=== PATIENT | male | born 1940 | race Caucasian/White ===

== ENCOUNTER 2017-04-24 08:09 | Day surgery (SDC) | payer MEDICARE, BC ==
[2017-04-18 14:54] VITALS: BMI 26.3
[2017-04-24] MEDS ORDERED: ASPIRIN 325 MG TAB PO STA (08:20)
[2017-04-24] MEDS ORDERED: ALPRAZolam 0.25 MG TAB PO PRN (08:20)
[2017-04-24] MEDS ORDERED: ATORVASTATIN 80 MG TAB PO STA (08:20)
[2017-04-24] MEDS ORDERED: ALPRAZolam 0.5 MG TAB PO PRN (08:20)
[2017-04-24] MEDS ORDERED: NITROGLYCERIN SL TABS 0.4 MG TAB SUBLINGUAL PRN ×2 (08:20→11:54)
[2017-04-24] MEDS ORDERED: SODIUM CHLORIDE 0.9% 1,000 ML in EMPTY BAG 1 BAG IV ONE (08:20)
[2017-04-24] MEDS ORDERED: LIDOCAINE 2% INJ 20 MG/ML (20 ML MDV) ONE (09:43)
[2017-04-24] MEDS ORDERED: MIDAZOLAM 2 MG/2 ML VIAL ONE (09:43)
[2017-04-24] MEDS ORDERED: diphenhydrAMINE 50 MG/ML 1 ML VIAL ONE (09:43)
[2017-04-24] MEDS ORDERED: IV FLUID CONTINUATION 1,000 ML IV ONE (09:51)
[2017-04-24] MEDS: MIDAZOLAM 2 MG/2 ML VIAL IV ONE ×2 (10:18→11:13)
[2017-04-24] MEDS ORDERED: diphenhydrAMINE 50 MG/ML 1 ML VIAL IVP ONE (10:18)
[2017-04-24] MEDS ORDERED: LIDOCAINE 2% INJ 20 MG/ML SQ ONE (10:19)
[2017-04-24] MEDS ORDERED: BIVALIRUDIN BOLUS 250 MG/50 ML IV ONE (11:08)
[2017-04-24] MEDS ORDERED: BIVALIRUDIN 250 MG in SODIUM CHLORIDE 0.9% 50 ML IV ONE (11:09)
[2017-04-24] MEDS: NITROGLYCERIN 1000MCG/10ML SYRINGE INTRACORON ONE ×2 (11:15→11:46)
[2017-04-24] MEDS ORDERED: IOHEXOL 350 MG/ML 125ML BOTTLE INJ ONE (11:48)
[2017-04-24] MEDS ORDERED: CLOPIDOGREL 75 MG TAB ONE (11:49)
[2017-04-24] MEDS ORDERED: ZOLPIDEM 10 MG TAB PO PRN (11:53)
[2017-04-24] MEDS ORDERED: CARISOPRODOL 350 MG TAB PO PRN (11:53)
[2017-04-24] MEDS ORDERED: HYDROcodone/APAP 10-325MG 1 EACH TAB PO PRN (11:53)
[2017-04-24] MEDS ORDERED: ATROPINE SULFATE 0.1 MG/ML 10ML SYRINGE IV PRN (11:54)
[2017-04-24] MEDS ORDERED: ZOLPIDEM 5 MG TAB PO PRN (11:54)
[2017-04-24] MEDS ORDERED: MAG HYDROX/AL HYDROX/SIMETH 30 ML CUP PO PRN (11:54)
[2017-04-24] MEDS ORDERED: RX INFO: IV CONTRAST WAS GIVEN 1 EACH MISC MISCELLANE PRN (11:54)
[2017-04-24] MEDS ORDERED: SODIUM CHLORIDE 0.9% 1,000 ML IV SCH (12:00)
[2017-04-24] MEDS ORDERED: CLOPIDOGREL 75 MG TAB PO ONE (12:00)
--- NOTE | 2017-04-24 12:34 | LTR ---
DATE OF SERVICE: April 24, 2017. RE: Dread De La Rosa Dear Claudio; Mr. Dread De La Rosa was not feeling well lately. I did a stress test on him in the office and that revealed lateral wall ischemia. He underwent a heart catheterization, which showed the occlusion of all bypasses except for the UMANZOR. He underwent successful stenting of the RCA with good angiographic results and he will be scheduled to undergo stenting of the left circumflex in the next few weeks. I want to thank you for allowing me to participate in his care and please do not hesitate to call if you have any question or concern. Sincerely, MD DILCIA Holt / DENNIS: [id number] /
--- NOTE | 2017-04-24 12:37 | CC ---
CARDIAC CATHETERIZATION REPORT DATE OF SERVICE: 04/24/2017 PERFORMING PHYSICIAN: South Riley MD, composition floor layer. PROCEDURE PERFORMED: 1. Selective left and right coronary angiogram. 2. Selective left internal mammary artery angiogram. 3. SVG to left circumflex angiogram. 4. SVG to ramus intermedius angiogram. 5. SVG to diagonal angiogram. 6. SVG to RCA angiogram. 7. Successful stenting of the distal RCA using x 20 mm Promus Premier drug- eluting stent with good angiographic results. 8. Successful stenting of the mid RCA using 3.0 x 12 mm Promus Premier drug-eluting stent with good angiographic results. INDICATION: This is a pleasant 76-year-old gentleman who is known to have CAD and prior coronary artery bypass grafting x5 where he received UMANZOR to LAD, SVG to diagonal, SVG to ramus, SVG to left circumflex, SVG to RCA, and UMANZOR to LAD, was experiencing exertional dyspnea. He underwent a myocardial perfusion imaging stress test and that showed lateral wall ischemia. In view of that, he was scheduled to undergo a heart catheterization. APPROACH: Right common femoral artery. COMPLICATION: None. LEVEL OF SEDATION: Moderate with a sedation length of 90 minutes. PROCEDURE DESCRIPTION: After obtaining an informed consent, the patient was brought to the cardiac laborer gold leaf. The right common femoral artery was cannulated using micropuncture technique, the micropuncture wire passed easily. Then I placed a 6-Nepali sheath in the right common femoral artery. After that, I did selective left and right coronary angiogram using JL4 and JR4 catheters. After that, I did SVG angiogram x4 using the JR4 catheter. The left internal mammary artery angiogram was performed also using the JR4 catheter. After that, I decided to intervene on the RCA please see a separate paragraph for that. SELECTIVE CORONARY ANGIOGRAM: 1. The left main is angiographically normal. It bifurcates into the left circumflex and left anterior descending artery. 2. The left circumflex is a large caliber vessel and it is a nondominant vessel. The proximal left circumflex gives rise into a large first obtuse marginal branch, which works as ramus intermedius, which has lesion in the ostium, appeared to be in the range of 50% and the midportion has another lesion appeared to be in the range of 70%. Distally it appeared to be angiographically normal. The mid left circumflex by the bifurcation of second OM branch has a lesion appeared to be in the range of 80% to 90%. The first obtuse marginal branch itself appeared to have moderate disease only. 3. The left anterior descending artery, the proximal LAD has disease appeared to be in the range of 50%. The mid LAD is 100% occluded. 4. The RCA, the proximal RCA appeared to be angiographically normal. The mid RCA has a lesion appeared to be in the range of 60%. The RCA distally appeared to have a long tubular lesion in the range of 90% involving the PDA and PLV branch of the RCA. The. The PLV branch is quite larger branch. CORONARY BYPASSES ANGIOGRAM: 1. The UMANZOR to LAD is patent. 2. The SVG to diagonal is occluded. 3. The SVG to the ramus intermedius is occluded. 4. The SVG to left circumflex is occluded. 5. The SVG to RCA is occluded. PCI OF THE RCA: Anticoagulation was initiated using Angiomax. Subsequently I took JR4 guide and the RCA was engaged. A whisper wire was used to wire the right coronary artery. Initially, I tried to advance 2.5 x 15 mm balloon but the balloon will not cross the distal RCA lesion. At that point, I decided to use 1.5 mm balloon and then after that I was able to advance the 2.5 x 15 mm balloon where I did PTCA ballooning of that lesion and I was able to open the lesion completely. After that, and using a double wire with whisper and run-through wire, I was able to advance 2.75 x 20 mm Promus Premier drug-eluting stent where the stent was positioned under fluoroscopy guidance and deployed under 14 atmospheres for 20 seconds. The following angiogram showed good angiographic results. After that, for the lesion in the mid RCA, which looks quite worse after the intervention on the distal RCA, I decided to stent that lesion so I was able to advance a 3.0 x 12 mm Promus Premier drug-eluting stent where the stent again was positioned under fluoroscopy guidance and deployed under 14 atmospheres for 20 seconds. The following angiogram showed good angiographic results. The procedure was completed without any complication. CONCLUSION: 1. Severe triple-vessel coronary artery disease. 2. Patent UMANZOR to LAD. 3. The occlusion of all vein grafts including SVG to RCA, SVG to left circumflex, SVG to ramus intermedius, and SVG to diagonal branch. 4. Successful stenting of the distal and mid RCA as described above. Postprocedure management is maximize medical treatment and follow up with the patient. DILCIA / DENNIS: [id number] /
[2017-04-24] MEDS ORDERED: AMITRIPTYLINE HCL 50 MG TAB PO SCH (18:30)
[2017-04-24] MEDS: CARVEDILOL 12.5 MG TAB PO SCH (20:06)
[2017-04-24] MEDS: CHOLECALCIFEROL 1,000 UNIT TAB PO SCH (20:06)
[2017-04-24] MEDS ORDERED: PANTOPRAZOLE 40 MG TABLET PO SCH (21:00)
[2017-04-25 06:35] LABS: Basophils % (A) 1 %; Eosinophils # (A) 0.2 k/uL (0-0.7); Eosinophils % (A) 2 %; HCT 39.3 % (39.0-53.0); HGB 12.8 gm/dL (13.0-17.5); Lymphocytes # (A) 1.3 k/uL (1.0-4.8); Lymphocytes % (A) 17 %; MCH 33.5 pg (25.0-35.0); MCHC 32.6 g/dL (31.0-37.0); MCV 102.5 fL (80.0-100.0); Macrocytosis Slight; Mean Platelet Volume 7.4; Monocytes # (A) 0.6 k/uL (0-1.0); Monocytes % (A) 8 %; Neutrophils % (A) 70 %; Platelet Count 160 k/uL (150-450); RBC 3.83 m/uL (4.30-5.90); RDW 14.6 % (11.5-15.5); WBC 7.2 k/uL (3.8-10.6)
[2017-04-25 06:44] LABS: Anion Gap 9 mmol/L; Blood Urea Nitrogen 17 mg/dL (9-20); Calcium 9.3 mg/dL (8.4-10.2); Carbon Dioxide 28 mmol/L (22-30); Chloride 102 mmol/L (98-107); Glucose 103 mg/dL (74-99); Potassium 4.1 mmol/L (3.5-5.1); Sodium 139 mmol/L (137-145)
[2017-04-25] MEDS: CHOLECALCIFEROL 1,000 UNIT TAB PO SCH (08:21)
[2017-04-25] MEDS: CARVEDILOL 12.5 MG TAB PO SCH (08:21)
[2017-04-25] MEDS ORDERED: CLOPIDOGREL 75 MG TAB PO SCH (09:00)
[2017-04-25] MEDS ORDERED: TAMSULOSIN 0.4 MG CAP.ER.24H PO SCH (09:00)
--- NOTE | 2017-04-25 10:08 | P.PN ---
Subjective Progress Note Date: 04/25/17 Principal diagnosis: RCA stent Discharge note This is a pleasant 76-year-old gentleman with known history of coronary artery disease and prior bypass surgery in 1999, hypertension, hyperlipidemia, he underwent cardiac catheterization with subsequent stent placement of the mid and distal right coronary artery. Patient was seen and examined this morning, denies any chest pain or difficulty in breathing. He has been up ambulating without any difficulty. EKG from this morning was reviewed which was normal sinus rhythm with no changes from post-PCI. Blood pressure 100/60, heart rate in the 70s, 96% on room air. White blood cell count 7.2, hemoglobin 12.8, platelet count 160. Sodium 139, potassium 4.1, BUN 17, creatinine 1.06. Patient will be discharged home today, follow-up appointment with Dr. Rilye in the office in one week. Objective - Vital Signs Vital signs: Vital Signs Temp 97 F L 04/25/17 08:00 Pulse 77 04/25/17 08:00 Resp 16 04/25/17 08:00 BP 100/63 04/25/17 08:00 Pulse Ox 96 04/25/17 08:00 Intake & Output 04/24/17 04/25/17 04/25/17 18:59 06:59 18:59 Intake Total 1308 360 Output Total 1275 650 Balance 33 -650 360 Weight 65.317 kg 63.5 kg Intake: IV 832 Oral 476 360 Output: Urine 1275 650 Other: Voiding Method Urinal Urinal # Voids 0 - Exam PHYSICAL EXAMINATION: HEENT: Head is atraumatic, normocephalic. Pupils equal, round. Neck is supple. There is no elevated jugular venous pressure. HEART EXAMINATION: Heart S1, S2 normal. No murmur or gallop heard. CHEST EXAMINATION: Lungs are clear to auscultation and precussion. No chest wall tenderness is noted on palpation or with deep breathing. ABDOMEN: Soft, nontender. Bowel sounds are heard. No organomegaly noted. Right groin soft, no evidence of any hematoma. EXTREMITIES: 2+ peripheral pulses with no evidence of peripheral edema and no calf tenderness noted. NEUROLOGIC patient is awake, alert and oriented -3. . - Labs CBC & Chem 7: 04/25/17 06:12 04/25/17 06:12 Labs: Abnormal Lab Results - Last 24 Hours (Table) 04/25/17 04/25/17 Range/Units 06:12 06:12 RBC 3.83 L (4.30-5.90) m/uL Hgb 12.8 L (13.0-17.5) gm/dL MCV 102.5 H (80.0-100.0) fL Glucose 103 H (74-99) mg/dL Assessment and Plan Plan: Assessment and plan #1 status post angioplasty and stenting of the mid and distal right coronary artery #2 coronary artery disease with prior bypass surgery in 1999 #3 hypertension #4 hyperlipidemia Plan Patient may be able to be discharged home today on maximal medical treatment. We'll make him a follow-up appointment with Dr. Riley in the office in one week. Patient will be discharged home on aspirin 81 mg daily, Lipitor 80 mg daily, Coreg 25 mg one tablet by mouth twice a day, vitamin D twice a day, Plavix 75 mg daily, Protonix 40 mg daily, Flomax 0.4 mg daily, sublingual nitroglycerin as needed for chest pain. DNP note has been reviewed, I agree with a documented findings and plan of care. Patient was seen and examined.
[2017-04-25] MEDS ORDERED: ATORVASTATIN 20 MG TAB PO SCH (12:30)
[2017-04-25 16:25] VITALS: BP 100/63; PULSE 77; RESP 16; TEMP 97
[2017-04-25] MEDS ORDERED: ASPIRIN 81 MG PO SCH (21:00)
[2017-04-25] MEDS ORDERED: ATORVASTATIN 80 MG TAB PO SCH (21:00)
== END 2017-04-25 12:59 | disposition home or self-care (01) ==
LOC: CATHCVL 08:09 → 6SEL 11:48 → CATHCVL 04-25 12:59
PROVIDERS: ATTEND Internal Medicine Interventional Cardiology
DX: I25.700 Atherosclerosis of coronary artery bypass graft(s), unspecified, with unstable angina pectoris (principal); R94.39 Abnormal result of other cardiovascular function study; I11.9 Hypertensive heart disease without heart failure; I73.9 Peripheral vascular disease, unspecified; E78.00 Pure hypercholesterolemia, unspecified; Z95.1 Presence of aortocoronary bypass graft; Z95.820 Peripheral vascular angioplasty status with implants and grafts; I72.3 Aneurysm of iliac artery; Z79.82 Long term (current) use of aspirin; Z79.899 Other long term (current) drug therapy; Z87.891 Personal history of nicotine dependence
CPT/HCPCS: 94760; 93455; 80048; 85025; C9600; C1769 ×6; C1887 ×2; C1894; C1874; C1725; J2001; J2250; J1200; J0583; Q9967

== ENCOUNTER 2017-05-08 11:15 | Day surgery (SDC) | payer MEDICARE, BC ==
[2017-05-07 09:57] VITALS: BMI 25.4
[~2017-05-08 11:15] MED LIST: ALPRAZolam 0.25 MG TAB PO PRN; ALPRAZolam 0.5 MG TAB PO PRN; ASPIRIN 325 MG TAB PO STA; NITROGLYCERIN SL TABS 0.4 MG TAB SUBLINGUAL PRN; SODIUM CHLORIDE 0.9% 1,000 ML in EMPTY BAG 1 BAG IV ONE
[2017-05-08] MEDS ORDERED: LIDOCAINE 2% INJ 20 MG/ML (20 ML MDV) ONE (14:08)
[2017-05-08] MEDS ORDERED: MIDAZOLAM 2 MG/2 ML VIAL IV ONE (14:16)
[2017-05-08] MEDS ORDERED: MIDAZOLAM 2 MG/2 ML VIAL ONE (14:17)
[2017-05-08] MEDS ORDERED: LIDOCAINE 2% INJ 20 MG/ML SQ ONE (14:21)
[2017-05-08] MEDS ORDERED: BIVALIRUDIN BOLUS 250 MG/50 ML IV ONE (14:24)
[2017-05-08] MEDS ORDERED: BIVALIRUDIN 250 MG in SODIUM CHLORIDE 0.9% 50 ML IV ONE (14:25)
[2017-05-08] MEDS ORDERED: fentaNYL (PF) 50 MCG/ML 2 ML AMP ONE (14:55)
[2017-05-08] MEDS ORDERED: fentaNYL (PF) 50 MCG/ML 2 ML AMP IV ONE (14:57)
[2017-05-08] MEDS ORDERED: NITROGLYCERIN 1000MCG/10ML SYRINGE INTRACORON ONE (15:07)
[2017-05-08] MEDS ORDERED: niCARdipine Syringe (1,000 mcg/10 mL) INTRACORON ONE (15:08)
[2017-05-08] MEDS ORDERED: IOHEXOL 350 MG/ML 125ML BOTTLE INJ ONE (15:09)
[2017-05-08] MEDS ORDERED: HEPARIN SODIUM 1,000 UN/ML (10ML VL) ONE (15:12)
[2017-05-08] MEDS ORDERED: ZOLPIDEM 10 MG TAB PO PRN (16:11)
[2017-05-08] MEDS ORDERED: HYDROcodone/APAP 10-325MG 1 EACH TAB PO PRN (16:11)
[2017-05-08] MEDS ORDERED: CARISOPRODOL 350 MG TAB PO PRN (16:11)
[2017-05-08] MEDS ORDERED: NITROGLYCERIN SL TABS 0.4 MG TAB SUBLINGUAL PRN ×2 (16:11→16:12)
[2017-05-08] MEDS ORDERED: RX INFO: IV CONTRAST WAS GIVEN 1 EACH MISC MISCELLANE PRN (16:12)
[2017-05-08] MEDS ORDERED: ATROPINE SULFATE 0.1 MG/ML 10ML SYRINGE IV PRN (16:12)
[2017-05-08] MEDS ORDERED: MAG HYDROX/AL HYDROX/SIMETH 30 ML CUP PO PRN (16:12)
[2017-05-08] MEDS ORDERED: ZOLPIDEM 5 MG TAB PO PRN (16:12)
[2017-05-08] MEDS ORDERED: SODIUM CHLORIDE 0.9% 1,000 ML IV SCH (16:15)
[2017-05-08] MEDS: CHOLECALCIFEROL 1,000 UNIT TAB PO SCH (18:27)
[2017-05-08] MEDS ORDERED: AMITRIPTYLINE HCL 50 MG TAB PO SCH (18:30)
[2017-05-08] MEDS: CARVEDILOL 12.5 MG TAB PO SCH (18:51)
--- NOTE | 2017-05-08 19:25 | PTCA ---
PERCUTANEOUSTRANS CORORONARY ANGIOGRAPHY DATE OF SERVICE: 05/08/2017 PERFORMING PHYSICIAN: South Riley MD, plastics tooling engineer. PROCEDURE PERFORMED: Attempted balloon angioplasty of the left circumflex coronary artery. INDICATION: This is a pleasant 76-year-old gentleman who is known to have coronary artery disease and prior coronary artery bypass grafting who underwent recently a heart catheterization that showed severe triple-vessel coronary artery disease with occlusion of all vein grafts and patent UMANZOR to LAD. He underwent balloon angioplasty of the RCA and was brought today to undergo balloon angioplasty of the left circumflex. APPROACH: Right common femoral artery. COMPLICATIONS: None. LEVEL OF SEDATION: Moderate with sedation length of 50 minutes. PROCEDURE DESCRIPTION: After obtaining informed consent, the patient was brought to the cardiac microbiology lab assistant. The right common femoral artery was cannulated using micropuncture technique. The micropuncture wire passed easily. Then I placed a 6-Thai sheath in the right common femoral artery. After that, I started anticoagulation with Angiomax with a bolus and drip. Subsequently I engaged the left main using an XB3.5 LAD guide. After that I wired the left circumflex using a Whisper wire. I attempted advancing a 2.5 mm balloon, but the balloon would not cross the lesion in the left circumflex. At that point I tried a 1.5 balloon, and a 1.5 balloon would not cross. I wired the left circumflex using a thelma wire with a Choice PT wire, and with that double wire I was able to advance a 1.5 mm balloon and did balloon angioplasty of the left circumflex. After that I advanced a 2.5 x 15 mm balloon. The balloon crossed the lesion, but the balloon would not open up where the tightest part of the lesion was. At that point I decided to stop and bring the patient to undergo atherectomy. I pulled both wires and I did selective left coronary angiogram, which showed good flow in the left circumflex. POST-PROCEDURE MANAGEMENT: 1. Continue dual anti-platelet therapy. 2. Bring the patient for atherectomy of the left circumflex. MMODL / IJN: [id number] /
[2017-05-08] MEDS ORDERED: ASPIRIN 81 MG PO SCH (21:00)
[2017-05-08] MEDS ORDERED: PANTOPRAZOLE 40 MG TABLET PO SCH (21:00)
[2017-05-08] MEDS ORDERED: ATORVASTATIN 80 MG TAB PO SCH (21:00)
[2017-05-09 06:17] LABS: Basophils % (A) 1 %; Eosinophils # (A) 0.2 k/uL (0-0.7); Eosinophils % (A) 2 %; HCT 35.6 % (39.0-53.0); HGB 12.1 gm/dL (13.0-17.5); Lymphocytes # (A) 1.9 k/uL (1.0-4.8); Lymphocytes % (A) 29 %; MCH 33.3 pg (25.0-35.0); MCHC 33.9 g/dL (31.0-37.0); MCV 98.2 fL (80.0-100.0); Mean Platelet Volume 7.1; Monocytes # (A) 0.5 k/uL (0-1.0); Monocytes % (A) 8 %; Neutrophils # (A) 3.9 k/uL (1.3-7.7); Neutrophils % (A) 58 %; Platelet Count 217 k/uL (150-450); RBC 3.63 m/uL (4.30-5.90); RDW 13.2 % (11.5-15.5); WBC 6.6 k/uL (3.8-10.6)
[2017-05-09] MEDS: CARVEDILOL 12.5 MG TAB PO SCH (06:20)
[2017-05-09 06:27] LABS: Anion Gap 8 mmol/L; Blood Urea Nitrogen 20 mg/dL (9-20); Calcium 9.1 mg/dL (8.4-10.2); Carbon Dioxide 27 mmol/L (22-30); Chloride 103 mmol/L (98-107); Glucose 88 mg/dL (74-99); Potassium 4.2 mmol/L (3.5-5.1); Sodium 138 mmol/L (137-145)
[2017-05-09] MEDS: CHOLECALCIFEROL 1,000 UNIT TAB PO SCH (08:06)
[2017-05-09 08:14] VITALS: BP 120/64; PULSE 76; RESP 16; TEMP 96.2
--- NOTE | 2017-05-09 08:29 | DS ---
DISCHARGE SUMMARY DATE OF ADMISSION: 05/08/2017. DATE OF DISCHARGE: 05/09/2017. BRIEF HISTORY: This is a pleasant 76-year-old gentleman who was admitted to the hospital to undergo PCI of the left circumflex. An attempted angioplasty was performed and was unsuccessful due to the heavily calcified left circumflex where I could not crack the disease using balloon angioplasty. Because of that, the patient will be rescheduled to undergo an atherectomy and balloon angioplasty in the next 2 to 4 weeks. He continues to be asymptomatic from the cardiovascular standpoint of view. The right groin is soft and nontender and without any bruises. The patient is going to be discharged home. MMODL / IJN: [id number] /
[2017-05-09] MEDS ORDERED: CLOPIDOGREL 75 MG TAB PO SCH (09:00)
[2017-05-09] MEDS ORDERED: TAMSULOSIN 0.4 MG CAP.ER.24H PO SCH (09:00)
== END 2017-05-09 10:28 | disposition home or self-care (01) ==
LOC: CATHCVL 11:15 → 6SEL 15:10 → CATHCVL 05-09 10:28
PROVIDERS: ATTEND Internal Medicine Interventional Cardiology
DX: I25.10 Atherosclerotic heart disease of native coronary artery without angina pectoris (principal); I25.84 Coronary atherosclerosis due to calcified coronary lesion; I10 Essential (primary) hypertension; Z87.891 Personal history of nicotine dependence; Z95.1 Presence of aortocoronary bypass graft; E78.5 Hyperlipidemia, unspecified; I25.5 Ischemic cardiomyopathy; I73.9 Peripheral vascular disease, unspecified; Z95.820 Peripheral vascular angioplasty status with implants and grafts; Z79.02 Long term (current) use of antithrombotics/antiplatelets; Z79.82 Long term (current) use of aspirin; Z79.899 Other long term (current) drug therapy; Z88.0 Allergy status to penicillin; Z88.8 Allergy status to other drugs, medicaments and biological substances
CPT/HCPCS: 92920; 80048; 85025; C1769 ×4; C1725 ×3; C1887; C1894 ×2; J2001; J2250; J3010; J0583; Q9967

== ENCOUNTER → 2017-06-27 | Outpatient (CLI) | payer MEDICARE, BC ==
[2017-06-27 10:20] LABS: HCT 37.5 % (39.0-53.0); MCH 33.7 pg (25.0-35.0); MCHC 34.8 g/dL (31.0-37.0); MCV 96.9 fL (80.0-100.0); Mean Platelet Volume 7.5; Platelet Count 176 k/uL (150-450); RBC 3.86 m/uL (4.30-5.90); RDW 13.2 % (11.5-15.5); WBC 7.1 k/uL (3.8-10.6)
[2017-06-27 10:35] LABS: Potassium 4.3 mmol/L (3.5-5.1)
== END | disposition home or self-care (01) ==
LOC: LABPAT 09:59
PROVIDERS: ATTEND Internal Medicine Interventional Cardiology
DX: Z01.812 Encounter for preprocedural laboratory examination (principal); I25.10 Atherosclerotic heart disease of native coronary artery without angina pectoris
CPT/HCPCS: 36415; 80051; 82565; 84520; 85027

== ENCOUNTER 2017-07-03 08:33 | Day surgery (SDC) | payer MEDICARE, BC ==
[2017-07-02 09:19] VITALS: BMI 26.3
[2017-07-03] MEDS: MIDAZOLAM 2 MG/2 ML VIAL IV ONE ×2 (09:42→11:12)
[2017-07-03] MEDS ORDERED: BIVALIRUDIN BOLUS 250 MG/50 ML IV ONE (11:23)
[2017-07-03] MEDS ORDERED: BIVALIRUDIN 250 MG in SODIUM CHLORIDE 0.9% 50 ML IV ONE (11:24)
[2017-07-03] MEDS: NITROGLYCERIN 1000MCG/10ML SYRINGE INTRAARTER ONE ×2 (11:24→11:58)
[2017-07-03] MEDS ORDERED: MIDAZOLAM 2 MG/2 ML VIAL IV ONE (11:35)
[2017-07-03] MEDS: fentaNYL (PF) 50 MCG/ML 2 ML AMP IV ONE ×2 (11:52→12:09)
[2017-07-03] MEDS ORDERED: NITROGLYCERIN 1000MCG/10ML SYRINGE INTRACORON ONE (11:58)
[2017-07-03] MEDS ORDERED: IOHEXOL 350 MG/ML 125ML BOTTLE INJ ONE (12:12)
[2017-07-03] MEDS ORDERED: CLOPIDOGREL 75 MG TAB PO ONE (12:16)
[2017-07-03] MEDS ORDERED: NITROGLYCERIN SL TABS 0.4 MG TAB SUBLINGUAL PRN ×2 (12:18→12:22)
[2017-07-03] MEDS ORDERED: ATROPINE SULFATE 0.1 MG/ML 10ML SYRINGE IV PRN (12:18)
[2017-07-03] MEDS ORDERED: MAG HYDROX/AL HYDROX/SIMETH 30 ML CUP PO PRN (12:18)
[2017-07-03] MEDS ORDERED: ZOLPIDEM 5 MG TAB PO PRN (12:18)
[2017-07-03] MEDS ORDERED: RX INFO: IV CONTRAST WAS GIVEN 1 EACH MISC MISCELLANE PRN (12:18)
[2017-07-03] MEDS ORDERED: ZOLPIDEM 10 MG TAB PO PRN (12:22)
[2017-07-03] MEDS ORDERED: CARISOPRODOL 350 MG TAB PO PRN (12:22)
[2017-07-03] MEDS ORDERED: SODIUM CHLORIDE 0.9% 1,000 ML IV SCH (12:30)
--- NOTE | 2017-07-03 12:44 | LTR ---
DATE OF SERVICE: 07/03/2017 RE: Dread De La Rosa Dear Lai; Mr. Dread De La Rosa underwent successful stenting of the left circumflex coronary artery using a drug-eluting stent with good angiographic results and without any complication. I want to thank you for allowing me to participate in his care and please do not hesitate to call if you have any question or concern. Sincerely, MD DILCIA Holt / DENNIS: [id number] /
[2017-07-03] MEDS: HYDROcodone/APAP 10-325MG 1 EACH TAB PO PRN (13:07)
--- NOTE | 2017-07-03 14:50 | AN ---
ANGIOGRAPHY REPORT DATE OF SERVICE: July 03, 2017 PERFORMING PHYSICIAN: South Riley MD, meat processing center manager. PROCEDURE PERFORMED: 1. Selective right coronary angiogram. 2. Intravascular ultrasound IVUS of the first obtuse marginal branch of the left circumflex. 3. Atherectomy of the first OM branch of the left circumflex using the orbital atherectomy device from [employer]. 4. Successful stenting of OM1 using 2.25 x 12 mm Elunir drug-eluting stent with good angiographic results. INDICATION: This is a pleasant 76-year-old gentleman who is known to have coronary artery disease and was experiencing chest discomfort and underwent a heart catheterization a few months ago and that revealed severe triple-vessel coronary artery disease with patent UMANZOR to LAD and the occlusion of all vein grafts. He underwent successful stenting of the LAD of the RCA. He was brought a few weeks late after that and underwent an attempted balloon angioplasty of OM1 and that was unsuccessful because of the calcified/fibrotic lesion. He was brought today to undergo an atherectomy of that branch. APPROACH: Right common femoral artery. COMPLICATION: None. LEVEL OF SEDATION: Moderate with sedation length of 56 minutes. PROCEDURE DESCRIPTION: After obtaining an informed consent, the patient was brought to cardiac shop laborer. The right common femoral artery was cannulated using micropuncture technique, the micropuncture wire passed easily, then I placed a 6-Bermudian sheath in the right common femoral artery. After that, I did selective right coronary angiogram to assess the patency of the previous stent I put in the distal RCA. After that, I did intervene on the first obtuse marginal branch of the left circumflex. Please see a separate paragraph for that. SELECTIVE RIGHT CORONARY ANGIOGRAM: The RCA is a large caliber vessel and it is a dominant vessel. The proximal RCA appeared to have mild disease only. The mid RCA has diffuse [id number] disease only. The RCA distally was stented and the stent is patent. The RCA distally bifurcates into PDA and PLV. The PDA branch appeared to have slightly sluggish flow and mild ostial disease and the PLV branches has mild disease in the midportion. PCI of OM1: Anticoagulation was initiated using Angiomax. Subsequently I did engage the left main using an guide. A Whisper wire was used to wire the OM 1. After that, I did an intravascular ultrasound IVUS of OM 1 to assess the lesion in that branch and it showed eccentric lesion extends between 12-6 o'clock and that lesion seems to be heavily calcified. Because of that, I decided to do atherectomy on the lesion. At that point, I did exchange my Whisper wire into ViperWire preparing for orbital atherectomy and I did that over the [employer] catheter. After that, I did two runs of orbital atherectomy using low speeds. After that I did balloon angioplasty using 2.25 x 12 mm balloon before I deployed 2.25 x 12 mm balloon Elunir drug-eluting stent where the stent was positioned under fluoroscopy guidance and deployed under 12 atmospheres for 20 seconds with the following angiogram showing good angiographic results without perforation and without dissection with good flow in the OM 1. That OM 1 has ostial lesion appeared to be in the range of 50% to 60%. The procedure was completed without any complication. POST PROCEDURE MANAGEMENT: 1. Dual anti-platelet therapy. 2. Risk factors modifications. 3. Follow up with the patient. MMBENJY / MYKEN: [id number] /
[2017-07-03 17:19] VITALS: RESP 18
[2017-07-03] MEDS: CARVEDILOL 12.5 MG TAB PO SCH (18:14)
[2017-07-03] MEDS ORDERED: AMITRIPTYLINE HCL 50 MG TAB PO SCH (18:30)
[2017-07-03] MEDS: CHOLECALCIFEROL 1,000 UNIT TAB PO SCH (20:42)
[2017-07-03] MEDS ORDERED: ATORVASTATIN 80 MG TAB PO SCH (21:00)
[2017-07-03] MEDS ORDERED: ASPIRIN 81 MG PO SCH (21:00)
[2017-07-03] MEDS ORDERED: PANTOPRAZOLE 40 MG TABLET PO SCH (21:00)
[2017-07-04 04:57] VITALS: BP 109/60
[2017-07-04 06:16] LABS: Basophils % (A) 0 %; Eosinophils # (A) 0.1 k/uL (0-0.7); Eosinophils % (A) 2 %; HCT 35.3 % (39.0-53.0); HGB 11.8 gm/dL (13.0-17.5); Lymphocytes # (A) 1.5 k/uL (1.0-4.8); Lymphocytes % (A) 26 %; MCH 32.6 pg (25.0-35.0); MCHC 33.3 g/dL (31.0-37.0); MCV 97.7 fL (80.0-100.0); Mean Platelet Volume 7.6; Monocytes # (A) 0.5 k/uL (0-1.0); Monocytes % (A) 8 %; Neutrophils # (A) 3.6 k/uL (1.3-7.7); Neutrophils % (A) 61 %; Platelet Count 144 k/uL (150-450); RBC 3.61 m/uL (4.30-5.90); RDW 13.5 % (11.5-15.5); WBC 5.9 k/uL (3.8-10.6)
[2017-07-04 06:38] LABS: Anion Gap 8 mmol/L; Blood Urea Nitrogen 18 mg/dL (9-20); Calcium 8.7 mg/dL (8.4-10.2); Carbon Dioxide 25 mmol/L (22-30); Chloride 107 mmol/L (98-107); Glucose 79 mg/dL (74-99); Potassium 4.1 mmol/L (3.5-5.1); Sodium 140 mmol/L (137-145)
[2017-07-04] MEDS: CARVEDILOL 12.5 MG TAB PO SCH (06:53)
[2017-07-04] MEDS ORDERED: TAMSULOSIN 0.4 MG CAP.ER.24H PO SCH (09:00)
[2017-07-04] MEDS ORDERED: ISOSORBIDE MONONITRATE ER 60 MG TAB.ER.24H PO SCH (09:00)
[2017-07-04] MEDS ORDERED: SPIRONOLACTONE 25 MG TAB PO SCH (09:00)
[2017-07-04] MEDS ORDERED: CLOPIDOGREL 75 MG TAB PO SCH (09:00)
[2017-07-04] MEDS ORDERED: FERROUS SULFATE 325 MG TAB PO SCH (09:00)
[2017-07-04] MEDS ORDERED: FUROSEMIDE 20 MG TAB PO SCH (09:00)
[2017-07-04] MEDS: CHOLECALCIFEROL 1,000 UNIT TAB PO SCH (09:11)
[2017-07-04] MEDS: HYDROcodone/APAP 10-325MG 1 EACH TAB PO PRN (09:19)
[2017-07-04 10:39] VITALS: PULSE 57; TEMP 97.2
--- NOTE | 2017-07-04 13:51 | DS ---
DISCHARGE SUMMARY ADMISSION DATE: 07/03/2017 DISCHARGE DATE: 07/04/2017 BRIEF HISTORY: This is a very pleasant 76-year-old gentleman with known history of coronary artery disease who was experiencing intermittent episodes of chest discomfort concerning for angina. He underwent stenting of the RCA with good angiographic results. He also underwent an attempted balloon angioplasty of the ramus intermedius coronary artery and was unsuccessful. In view of the continuous chest discomfort, he was brought in today and underwent successful atherectomy and balloon angioplasty of the ramus intermedius with good angiographic results and without any complication with the procedure was performed from the right groin. On follow up with the patient today, he is doing good and he is asymptomatic. He denies having any chest pain or discomfort or difficulty breathing. The patient is going to be discharged home on dual anti-platelet therapy and I will follow up with the patient next week in the office. MMBENJY / DENNIS: [id number] /
== END 2017-07-04 11:42 | disposition home or self-care (01) ==
LOC: CATHCVL 08:33 → 6SEL 12:06 → CATHCVL 07-04 11:42
PROVIDERS: ATTEND Internal Medicine Interventional Cardiology
DX: I25.10 Atherosclerotic heart disease of native coronary artery without angina pectoris (principal); I25.810 Atherosclerosis of coronary artery bypass graft(s) without angina pectoris; R07.89 Other chest pain; I73.9 Peripheral vascular disease, unspecified; I10 Essential (primary) hypertension; E78.5 Hyperlipidemia, unspecified; I25.5 Ischemic cardiomyopathy; Z95.1 Presence of aortocoronary bypass graft; Z95.5 Presence of coronary angioplasty implant and graft; Z79.02 Long term (current) use of antithrombotics/antiplatelets; Z79.82 Long term (current) use of aspirin; Z79.899 Other long term (current) drug therapy; Z88.0 Allergy status to penicillin; Z88.8 Allergy status to other drugs, medicaments and biological substances; Z87.891 Personal history of nicotine dependence
CPT/HCPCS: 92978; 80048; 83735; 85025; C9602; C1769 ×6; C1887 ×2; C1894; C1753; C1714; C1874; C1725; J2250; J3010; J0583; Q9967; 92979

== ENCOUNTER 2017-10-25 18:05 | Emergency (ER) | payer MEDICARE, BC ==
[2017-10-25 18:17] VITALS: PULSE 57; RESP 18; TEMP 97.9
[2017-10-25] MEDS ORDERED: MORPHINE SULFATE 2 MG/ML SYRINGE IV STA (18:39)
[2017-10-25] MEDS ORDERED: methylPREDNISolone SOD SUCCI 125 MG/2 ML VIAL IV STA (18:40)
[2017-10-25] MEDS ORDERED: METHOCARBAMOL 500 MG TAB PO STA (18:40)
[2017-10-25] MEDS ORDERED: RX INFO: IV CONTRAST WAS GIVEN 1 EACH MISC MISCELLANE PRN (18:44)
[2017-10-25 18:51] LABS: Basophils # (A) 0.1 k/uL (0-0.2); Basophils % (A) 1 %; Eosinophils # (A) 0.2 k/uL (0-0.7); Eosinophils % (A) 4 %; HGB 13.3 gm/dL (13.0-17.5); Lymphocytes # (A) 1.9 k/uL (1.0-4.8); Lymphocytes % (A) 32 %; MCH 33.4 pg (25.0-35.0); MCHC 34.2 g/dL (31.0-37.0); MCV 97.7 fL (80.0-100.0); Mean Platelet Volume 6.9; Monocytes # (A) 0.4 k/uL (0-1.0); Monocytes % (A) 8 %; Neutrophils # (A) 3.2 k/uL (1.3-7.7); Neutrophils % (A) 54 %; Platelet Count 179 k/uL (150-450); RBC 3.99 m/uL (4.30-5.90); RDW 14.2 % (11.5-15.5); WBC 5.9 k/uL (3.8-10.6)
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
[2017-10-25 19:06] LABS: Appearance,Urine Clear (Clear); Bilirubin,Urine Negative (Negative); Blood,Urine Negative (Negative); Color,Urine Light Yellow; Glucose,Urine (UA) Negative (Negative); Ketones,Urine Negative (Negative); Leukocyte Esterase,Urine Negative (Negative); Nitrite,Urine Negative (Negative); PH, Urine 6.5 (5.0-8.0); Protein,Urine Negative (Negative); Specific Gravity,Urine 1.009 (1.001-1.035); Urobilinogen,Urine <2.0 mg/dL (<2.0)
[2017-10-25 19:13] LABS: Anion Gap 12 mmol/L; Blood Urea Nitrogen 19 mg/dL (9-20); Calcium 8.2 mg/dL (8.4-10.2); Carbon Dioxide 24 mmol/L (22-30); Chloride 103 mmol/L (98-107); Glucose 117 mg/dL (74-99); Magnesium 1.8 mg/dL (1.6-2.3); Potassium 3.9 mmol/L (3.5-5.1); Sodium 139 mmol/L (137-145)
--- NOTE | 2017-10-25 20:48 | CT ---
EXAMINATION TYPE: CT angio abd aorta w/Runoff DATE OF EXAM: 10/25/2017 COMPARISON: HISTORY: Right hip and back pain. CT DLP: 1442.6 mGycm, Automated Exposure Control for Dose Reduction was Utilized. CONTRAST: CT scan of the abdomen and pelvis is performed with oral and with IV Contrast, patient injected with 125ml mL of Isovue 370. FINDINGS: There is a large hiatal hernia. There are some fibrotic changes at the lung bases. There is arterial flow in the abdominal aorta which shows some patchy atheromatous change. There is plaque formation in the mid abdominal aorta that measures up to 8 mm. There is no aneurysm. There is bilateral arterial flow in the common internal and external iliac arteries. There is a 11 mm rounded hypodensity in the anterior left lobe of the liver that could be a cyst. Gal lbladder appears normal. Spleen appears normal. There is no pancreatic mass. Kidneys show satisfactor y contrast opacification. There is patency of the renal arteries. There is no hydronephrosis. There i s no retroperitoneal adenopathy. The celiac artery and superior Mesenteric artery are patent. There is a 5 x 3.3 cm oval-shaped low-density mass that is anterior to the proximal right internal il iac artery. This is probably a large saccular aneurysm. The wall shows thin calcification. Bladder distends smoothly. The prostate is enlarged and measures 6 cm. There is no free fluid in the pelvis. There is no ascites. I see no intestinal wall thickening. There is no evidence of a bowel obs truction. There are surgical clips in the left inguinal region and suprapubic region. There is arterial flow in both femoral arteries which are fairly symmetric. There is diffuse atherosc lerotic change in the femoral arteries. There is symmetric contrast density in the popliteal arteries . There is patency of the tibial artery trifurcations. There is diminished contrast density in the mi d and distal right side tibial arteries. The left side shows arterial flow in the posterior tibial ar aura at the ankle. In the mid calf there is bilateral arterial flow in the anterior posterior tibial arteries and the peroneal arteries. There is bone graft at T12 vertebral body. There is posterior fus ion surgery from T11 to L1. There is osteopenia. The right hip joint appears intact. There is no sign of hip dysplasia. Acetabulum appears intact. IMPRESSION: There is diminished arterial flow distally in the right lower leg compared to the left. This is sugge stive of hemodynamically stenosis distally. I do not see evidence of significant stenosis in the noam c and femoral arteries. 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 Atherosclerotic vascular disease. No aortic aneury sm. Lumbar spine fusion surgery.
[2017-10-25] MEDS ORDERED: LIDOCAINE 5% PATCH TOPICAL STA (20:55)
[2017-10-25] MEDS ORDERED: HYDROmorphone 0.5 MG/0.5 ML SYRINGE IVP STA (20:55)
[2017-10-25 21:16] VITALS: BP 124/73
== END 2017-10-25 21:52 | disposition home or self-care (01) ==
LOC: EC 18:05
DX: M54.31 Sciatica, right side (principal); I25.10 Atherosclerotic heart disease of native coronary artery without angina pectoris; I11.0 Hypertensive heart disease with heart failure; I50.9 Heart failure, unspecified; K21.9 Gastro-esophageal reflux disease without esophagitis; H91.90 Unspecified hearing loss, unspecified ear; N42.9 Disorder of prostate, unspecified; Z87.891 Personal history of nicotine dependence; Z79.82 Long term (current) use of aspirin; Z79.899 Other long term (current) drug therapy; Z88.0 Allergy status to penicillin; Z88.5 Allergy status to narcotic agent; Z88.8 Allergy status to other drugs, medicaments and biological substances; Z95.1 Presence of aortocoronary bypass graft; Z95.818 Presence of other cardiac implants and grafts; Z98.890 Other specified postprocedural states
CPT/HCPCS: 36415; 80048; 83735; 85025; 81003; 75635; 99284; 96374; 96375 ×2; J2930; J2270; J1170; Q9967

== ENCOUNTER → 2018-08-18 | Outpatient (CLI) | payer MEDICARE, BC ==
[2018-08-18 15:39] LABS: Blood Urea Nitrogen 12 mg/dL (9-20)
--- NOTE | 2018-08-19 04:31 | CT ---
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 PT stated this was a follow-up to stent in groin. Hx stent placement, open heart TECHNIQUE: Contiguous axial scanning of the abdomen and pelvis followed by bilateral lower extremity runoff performed without and with IV Contrast, patient injected with 125 mL of Isovue 370. Coronal/sa gittal reconstructions performed. 3-D reconstructions generated on a dedicated independent workstatio n. CT DLP: 1802.70 mGycm Automated exposure control for dose reduction was used. FINDINGS: Median sternotomy wires. Heart borderline enlarged. No pericardial effusion. Some chronic reticular densities left greater than right lung bases suggesting some interstitial fibr osis. No pleural effusion. Large hernia and partially visualized right-sided gynecomastia. Stable 1.1 cm hypodensity segment 3 left liver lobe, likely cyst. Portal venous system is patent. No biliary ductal dilatation. Gallbladder, adrenal glands, kidneys, spleen, and pancreas appear within normal limits. Moderate to large stool burden. Surgical clips anterior lower abdominal wall. No dilated small bowel, free fluid, or free air. Prominent distention of the urinary bladder. Heterogeneous enhancement of the prostate gland which is enlarged at 6.4 cm wide. Pelvic phleboliths. Vasculature: Celiac axis appears patent. Proximal splenic artery branches extend into the hiatal hernia. Moderate focal atherosclerotic narrowing SMA origin. Mild atherosclerotic change at the right renal a rtery origin and moderate at the left renal artery origin. Borderline ectatic abdominal aorta at the level of the renal arteries at 2.5 cm. Fusiform ectasia infrarenal abdominal aorta prior to the bifurcation at 2.6 cm. There is moderate ath erosclerotic calcification plaque here. Right: Redemonstrated large aneurysm right internal iliac artery measuring 5.1 cm, unchanged. The aneurysm s hows nonopacification with a internal iliac artery stent crossing the aneurysm. Scattered mild atherosclerotic calcifications throughout the right lower extremity. No significant na rrowing seen of the right common or superficial femoral arteries. Mild atherosclerotic narrowing proximal popliteal artery. Moderate atherosclerotic narrowing origin of the anterior tibial artery. Peroneal artery seen to the level of the ankle. Two-vessel runoff into the foot. Left: Ectasia left common iliac artery at 1.7 cm is unchanged. Stable 1 cm poststenotic dilatation of the proximal left internal iliac artery. Scattered mild atherosclerotic calcifications throughout. Mild atherosclerotic narrowing left superficial femoral artery proximally. No significant narrowing of the popliteal artery. The trifurcation vessels are patent with scattered mild atherosclerotic calcifications. Peroneal artery is seen to the level of the ankle. The anterior tibial artery becomes diminutive just above the ankle and is seen to just below the leve l of the ankle. Single vessel runoff via the posterior tibial artery. Bones: T11-L1 posterior and interbody fusion changes. Levoconvex scoliosis. IMPRESSION: 1. REDEMONSTRATED LARGE HIATAL HERNIA. MODERATE TO LARGE STOOL BURDEN. PROSTATOMEGALY (6.4 CM WIDE) W ITH HETEROGENEOUS ENHANCEMENT OF THE PROSTATE GLAND. CORRELATE WITH PATIENT'S SYMPTOMS, PSA, AND PHYS ICAL EXAM. MARKED URINARY BLADDER DISTENTION MAY REFLECT CHRONIC BLADDER OUTLET OBSTRUCTION. 2. FUSIFORM ECTASIA DISTAL ABDOMINAL AORTA AT 2.6 CM. RIGHT: 3. A 5.1 CM RIGHT INTERNAL ILIAC ARTERY ANEURYSM IS STABLE IN SIZE. THE ANEURYSM IS NONOPACIFYING SEC ONDARY TO A STENT WHICH CROSSES THE ANEURYSM. 4. MILD ATHEROSCLEROTIC CALCIFICATIONS THROUGHOUT THE RIGHT LOWER EXTREMITY. 5. MODERATE ATHEROSCLEROTIC CALCIFICATION ORIGIN OF THE ANTERIOR TIBIAL ARTERY. 6. PERONEAL ARTERY SEEN TO THE LEVEL OF THE ANKLE. TWO-VESSEL RUNOFF INTO THE FOOT. LEFT: 7. STABLE ECTASIA LEFT COMMON ILIAC ARTERY AT 1.7 CM. 8. STABLE 1 CM POSTSTENOTIC DILATATION OF THE PROXIMAL LEFT INTERNAL ILIAC ARTERY. 9. SCATTERED MILD ATHEROSCLEROTIC CALCIFICATIONS THROUGHOUT THE LEFT LOWER EXTREMITY. 10. THE PERONEAL ARTERY IS SEEN TO THE LEVEL OF THE ANKLE. 11. THE ANTERIOR TIBIAL ARTERY BECOMES DIMINUTIVE JUST ABOVE THE ANKLE AND IS SEEN TO JUST BELOW THE LEVEL OF THE ANKLE. 12. SINGLE-VESSEL RUNOFF VIA THE POSTERIOR TIBIAL ARTERY.
== END ==
LOC: RADCTMAIN 14:39
PROVIDERS: ATTEND Thoracic Surgery (Cardiothoracic Vascular Surgery)
DX: K44.9 Diaphragmatic hernia without obstruction or gangrene (principal); N40.0 Benign prostatic hyperplasia without lower urinary tract symptoms; I77.811 Abdominal aortic ectasia; I72.3 Aneurysm of iliac artery; I77.89 Other specified disorders of arteries and arterioles
CPT/HCPCS: 82565; 84520; 75635; 36415; Q9967

== ENCOUNTER → 2018-09-26 | Outpatient (CLI) | payer MEDICARE, BC ==
--- NOTE | 2018-09-26 14:34 | CT ---
EXAMINATION TYPE: CT chest wo con DATE OF EXAM: 09/26/2018 COMPARISON: None HISTORY: Atelectasis. CT DLP: 288 mGycm. Automated Exposure Control for Dose Reduction was Utilized. TECHNIQUE: CT scan of the thorax is performed without IV contrast. FINDINGS: Lack of contrast could compromise sensitivity. Patient is post median sternotomy. There are extensive coronary artery calcifications. Large hiatal hernia with partial intrathoracic stomach is present posterior to the left atrium. LUNGS: The lungs are grossly clear, there is no concerning parenchymal mass or nodule identified. Ab normal interlobular septal pleural thickening present at the lung bases and upper lobes compatible wi th interstitial lung disease. There is no pleural effusion or pneumothorax seen. The tracheobronchia l tree is patent. MEDIASTINUM: Lack of IV contrast is noted to limit evaluation for mediastinal and especially hilar ad enopathy. There are no definitive greater than 1 cm hilar or mediastinal lymph nodes. No cardiomega ly or pericardial effusion is seen. OTHER: Postop changes are noted to the thoracic lumbar spine. Low dense focus within the left lobe of the liver statistically likely represents cyst measuring 14 mm. IMPRESSION: Interstitial lung disease. Large hiatal hernia with fixed intrathoracic stomach. Coronary artery disease. Noncontrast exam. Additional findings above.
== END | disposition home or self-care (01) ==
LOC: RADCTMAIN 12:22
PROVIDERS: ATTEND Family Medicine
DX: J84.9 Interstitial pulmonary disease, unspecified (principal); I25.10 Atherosclerotic heart disease of native coronary artery without angina pectoris
CPT/HCPCS: 71250

== ENCOUNTER → 2019-06-26 | Outpatient (CLI) | payer MEDICARE, BC ==
[2019-06-26 13:29] LABS: African American GFR (CKD) >90 (>60 ml/min/1.73 sqM); Blood Urea Nitrogen 14 mg/dL (9-20); Non-African American GFR(CKD) 83 (>60 ml/min/1.73 sqM)
--- NOTE | 2019-06-26 20:38 | CT ---
EXAMINATION TYPE: CT abdomen pelvis w con DATE OF EXAM: 06/26/2019 COMPARISON: Abdominal mass left upper quadrant INDICATION: Abdominal pain, LUQ mass DLP: 618 mGycm, Automated exposure control for dose reduction was used. CONTRAST: 100 mL of Isovue 300. Study performed with Oral Contrast TECHNIQUE: Axial images were obtained from above the diaphragm to the pubic rami in the axial plane a t 5 mm thick sections. Reconstructed images are reviewed on the computer in the coronal plane. FINDINGS: Limited CT sections are obtained the lung bases. The lung bases are clear. There is a moderate size hiatal hernia present CT ABDOMEN: Liver: Normal Spleen: Normal Pancreas: Normal Adrenal glands: The adrenal glands are normal. Gallbladder: Normal Kidneys: No masses are evident. No hydronephrosis is present. No cysts are present. Delayed images were obtained through the kidneys, which remain unremarkable. Aorta: Vascular calcification is within the aorta. Aorta is tortuous Inferior vena cava: Normal. CT PELVIS: Loops of bowel within the abdomen and pelvis are normal. There are loops of bowel which are incom pletely distended or lack oral contrast limiting their evaluation. There is fecal debris within the a scending colon region. Appendix: Not identified. No suspicious dilated tubular structures or inflammatory changes are eviden t. Urinary bladder: Normal. Genitourinary structures: Prostate is very prominent. Osseous structures: No suspicious lytic or sclerotic lesions. There appears to be a large calcified aneurysm measuring 4.8 x 3.4 cm the right common iliac bifurcat ion extending along the external artery. Very minimal vascular flow is identified within this structu re. IMPRESSIONS: 1. Moderate size hiatal hernia. 2. Stable right iliac aneurysm which has some minimal internal flow which is unchanged.
== END | disposition home or self-care (01) ==
LOC: RADCTMAIN 12:25
PROVIDERS: ATTEND Internal Medicine Hematology & Oncology
DX: K44.9 Diaphragmatic hernia without obstruction or gangrene (principal); I72.3 Aneurysm of iliac artery; Z88.0 Allergy status to penicillin; Z88.8 Allergy status to other drugs, medicaments and biological substances
CPT/HCPCS: 82565; 84520; 74177; 36415; Q9967

== ENCOUNTER → 2019-12-25 | Outpatient (CLI) | payer MEDICARE, BC ==
[2019-12-25 14:12] LABS: HCT 35.7 % (39.0-53.0); HGB 11.7 gm/dL (13.0-17.5); MCH 32.5 pg (25.0-35.0); MCHC 32.8 g/dL (31.0-37.0); MCV 99.1 fL (80.0-100.0); Mean Platelet Volume 7.7; Platelet Count 112 k/uL (150-450); RDW 13.9 % (11.5-15.5); WBC 6.4 k/uL (3.8-10.6)
[2019-12-25 20:16] LABS: African American GFR (CKD) 94.5 (60.0-200.0); Magnesium 1.8 mg/dL (1.5-2.4); Non-African American GFR(CKD) 81.5 (60.0-200.0)
== END | disposition home or self-care (01) ==
LOC: LABWHC1 12:28
PROVIDERS: ATTEND Internal Medicine Interventional Cardiology
DX: Z01.818 Encounter for other preprocedural examination (principal); I25.10 Atherosclerotic heart disease of native coronary artery without angina pectoris; I50.22 Chronic systolic (congestive) heart failure
CPT/HCPCS: 36415; 82565; 83735; 84520; 85027

== ENCOUNTER 2019-12-29 06:23 | Day surgery (SDC) | payer MEDICARE, BC ==
[~2019-12-29 06:23] MED LIST changes: +ATORVASTATIN 80 MG TAB PO STA
[2019-12-29] MEDS ORDERED: LIDOCAINE 1% INJ 10MG/ML (20 ML MDV) SQ ONE ×2 (07:55→08:29)
[2019-12-29] MEDS ORDERED: HYDROmorphone 1 MG/ML 1 ML SYRINGE IVP ONE (08:27)
[2019-12-29] MEDS ORDERED: IOPAMIDOL-370 125ML BTL INJ ONE (08:36)
[2019-12-29] MEDS ORDERED: RX INFO: IV CONTRAST WAS GIVEN 1 EACH MISC MISCELLANE PRN (08:41)
[2019-12-29] MEDS ORDERED: SODIUM CHLORIDE 0.9% 1,000 ML IV SCH (08:45)
--- NOTE | 2019-12-29 09:57 | CC ---
CARDIAC CATHETERIZATION REPORT DATE OF SERVICE: 12/29/2019 PERFORMING PHYSICIAN: South Riley MD. PROCEDURE PERFORMED: 1. Selective left and right coronary angiogram. 2. UMANZOR to LAD angiogram. 3. SVG to diagonal angiogram. 4. SVG to left circumflex angiogram. 5. Left heart catheterization. 6. Right heart catheterization. INDICATION: This is a 79-year-old gentleman with coronary artery disease and prior coronary artery bypass grafting as well as stenting who was experiencing increasing shortness of breath with exertion, reminded him what symptoms he had before the last stenting of the RCA and ramus intermedius coronary artery. Because of that, a heart catheterization was advised after maximized medical treatment was tried. APPROACH: Right common femoral vein and right common femoral artery. COMPLICATION: None. LEVEL OF SEDATION: Moderate with sedation length of 45 minutes. PROCEDURE DESCRIPTION: After obtaining an informed consent, the patient was brought to the cardiac dental laboratory worker. The right common femoral vein and right common femoral artery were cannulated using micropuncture technique, the micropuncture wire passed easily, then I placed an 8- [place]ar[place]uan sheath in the right common femoral vein and 6-[place]aguan sheath in the right common femoral arteries. After that, I did right heart catheterization using [place] catheter. Subsequently, selective left and right coronary angiogram performed using JL4 and JR4 catheters. The JR4 catheter was performed to use to get all the bypasses. The procedure was completed without any complication. SELECTIVE CORONARY ANGIOGRAM: 1. The left main has mild to moderate disease only. It bifurcates into left circumflex, ramus intermedius, and left anterior descending artery. 2. The left circumflex is a large caliber vessel. It is a nondominant vessel. The left circumflex by the bifurcation into a first and second obtuse marginal branch has a tight lesion, appeared to be in the range of 90% to 95%. 3. The ramus intermedius is stented and the stent is patent. 4. The LAD is occluded in the midportion. 5. The RCA: The stented RCA distally is patent as well. CORONARY BYPASS ANGIOGRAM: 1. All saphenous vein grafts are occluded. 2. The UMANZOR to LAD is patent. HEMODYNAMICS: 1. The RA pressure was 11 mmHg. 2. The RV pressures were as follows: The systolic is 16 and end-diastolic of 1 mmHg. 3. We could not get the PA, so we are going to use the RV pressure as a surrogate. 4. For the pulmonary capillary wedge pressure, we are going to use the LVEDP as a surrogate. 5. The LVEDP was 4-8 mmHg. CONCLUSION: 1. Normal right heart pressures. 2. Patent UMANZOR to LAD. 3. Critical disease involving the first and second obtuse marginal branch bifurcation with a complex lesion. 4. Patent stent in the left circumflex. 5. Patent stent in the right coronary artery. POSTPROCEDURE MANAGEMENT: I would schedule the patient to undergo a PCI of the left circumflex using the bifurcation stent. MMODL / IJN: [id number] /
[2019-12-29] MEDS ORDERED: carisoprodoL 350 MG TAB PO PRN (15:11)
[2019-12-29] MEDS ORDERED: ZOLPIDEM 10 MG TAB PO PRN (15:11)
[2019-12-29] MEDS ORDERED: ALPRAZolam 0.5 MG TAB PO PRN (15:13)
[2019-12-29] MEDS ORDERED: ASPIRIN 325 MG TAB PO STA (15:13)
[2019-12-29] MEDS ORDERED: SODIUM CHLORIDE 0.9% 1,000 ML in EMPTY BAG 1 BAG IV ONE (15:13)
[2019-12-29] MEDS ORDERED: NITROGLYCERIN SL TABS 0.4 MG TAB SUBLINGUAL PRN (15:13)
[2019-12-29] MEDS ORDERED: ALPRAZolam 0.25 MG TAB PO PRN (15:13)
[2019-12-29] MEDS: carvediloL 6.25 MG TAB PO SCH (17:38)
[2019-12-29] MEDS: AMITRIPTYLINE HCL 50 MG TAB PO SCH (17:49)
[2019-12-29] MEDS: ATORVASTATIN 80 MG TAB PO SCH (20:23)
[2019-12-29] MEDS: ASPIRIN 81 MG PO SCH (20:23)
[2019-12-30 06:24] LABS: Glucose,Whole Blood 81 mg/dL (75-99)
[2019-12-30] MEDS: PANTOPRAZOLE 40 MG TABLET PO SCH (06:29)
[2019-12-30] MEDS: ISOSORBIDE MONONITRATE ER 60 MG TAB.ER.24H PO SCH (06:29)
[2019-12-30] MEDS: TAMSULOSIN 0.4 MG CAP.ER.24H PO SCH (06:29)
[2019-12-30] MEDS: carvediloL 6.25 MG TAB PO SCH ×2 (06:29→21:56)
[2019-12-30] MEDS: FERROUS SULFATE 325 MG TAB PO SCH (06:29)
[2019-12-30] MEDS: FINASTERIDE 5 MG TAB PO SCH (06:29)
[2019-12-30] MEDS ORDERED: HYDROmorphone 1 MG/ML 1 ML SYRINGE ONE ×3 (16:25→17:09)
[2019-12-30] MEDS ORDERED: LIDOCAINE 1% INJ 10MG/ML (20 ML MDV) ONE (16:25)
[2019-12-30] MEDS ORDERED: MIDAZOLAM 2 MG/2 ML VIAL IVP ONE (16:43)
[2019-12-30] MEDS ORDERED: HYDROmorphone 1 MG/ML 1 ML SYRINGE IVP ONE ×3 (16:43→17:10)
[2019-12-30] MEDS ORDERED: LIDOCAINE 1% INJ 10MG/ML (20 ML MDV) SQ ONE (16:49)
[2019-12-30] MEDS ORDERED: IV FLUID CONTINUATION 500 ML IV ONE (17:00)
[2019-12-30] MEDS ORDERED: BIVALIRUDIN BOLUS 250 MG/50 ML IV ONE (17:06)
[2019-12-30] MEDS ORDERED: BIVALIRUDIN 250 MG in SODIUM CHLORIDE 0.9% 50 ML IV ONE (17:06)
[2019-12-30] MEDS ORDERED: IOPAMIDOL-370 125ML BTL INJ ONE ×3 (17:21→18:28)
[2019-12-30] MEDS ORDERED: niCARdipine Syringe (1,000 mcg/10 mL) INTRACORON ONE (18:05)
[2019-12-30] MEDS ORDERED: NITROGLYCERIN 1000MCG/10ML SYRINGE INTRACORON ONE (18:05)
[2019-12-30] MEDS ORDERED: ATROPINE SULFATE 0.1 MG/ML 10ML SYRINGE IV PRN (18:22)
[2019-12-30] MEDS ORDERED: RX INFO: IV CONTRAST WAS GIVEN 1 EACH MISC MISCELLANE PRN (18:22)
[2019-12-30] MEDS ORDERED: ZOLPIDEM 5 MG TAB PO PRN (18:22)
[2019-12-30] MEDS ORDERED: MAG HYDROX/AL HYDROX/SIMETH 30 ML CUP PO PRN (18:22)
[2019-12-30] MEDS ORDERED: NITROGLYCERIN SL TABS 0.4 MG TAB SUBLINGUAL PRN (18:22)
[2019-12-30] MEDS ORDERED: CLOPIDOGREL 75 MG TAB ONE (18:24)
[2019-12-30] MEDS ORDERED: CLOPIDOGREL 75 MG TAB PO ONE (18:28)
[2019-12-30] MEDS ORDERED: SODIUM CHLORIDE 0.9% 1,000 ML IV SCH (18:30)
--- NOTE | 2019-12-30 18:50 | PTCA ---
PERCUTANEOUSTRANS CORORONARY ANGIOGRAPHY DATE OF SERVICE: 12/29/2019 PERFORMING PHYSICIAN: South Riley M.D. PROCEDURE PERFORMED: Balloon angioplasty of the mid left circumflex coronary artery. INDICATION: This is a 79-year-old gentleman with history of coronary artery disease and prior coronary artery bypass grafting as well as stenting who was experiencing symptoms of chest discomfort and underwent yesterday heart catheterization that showed a critical lesion involving the left circumflex in the mid portion by the bifurcation of an OM branch. He was brought today to undergo an intervention. APPROACH: Right common femoral artery. COMPLICATIONS: None. LEVEL OF SEDATION: Moderate, with sedation length of 80 minutes. PROCEDURE DESCRIPTION: After obtaining informed consent, the patient was brought to the cardiac chemical processing laborer. The right common femoral artery was cannulated using micropuncture technique. The micropuncture wire passed easily. Then I placed a 7-Persian sheath in the right groin. Anticoagulation was initiated using Angiomax. Subsequently I did engage the left main using an XP35 guide. I did after that wire the left circumflex as well as OM using a Whisper wire. I had a hard time advancing the 1.5 mm across the lesion, but I ballooned just proximal to the lesion where the nose of the balloon was inside the lesion, and that the balloon was inflated under 14 atmospheres for 20 seconds. Because I had difficulties advancing the balloon further, I decided to stop at this point and treat the patient medically. POST-PROCEDURE MANAGEMENT: 1. Consider medical treatment at this point. 2. If the patient continues to be symptomatic, he will need to have an atherectomy of the left circumflex. MMODL / IJN: [id number] /
[2019-12-30] MEDS: ASPIRIN 81 MG PO SCH (21:55)
[2019-12-30] MEDS: AMITRIPTYLINE HCL 50 MG TAB PO SCH (21:56)
[2019-12-30] MEDS: ATORVASTATIN 80 MG TAB PO SCH (21:56)
[2019-12-31] MEDS: PANTOPRAZOLE 40 MG TABLET PO SCH (06:31)
[2019-12-31] MEDS: carvediloL 6.25 MG TAB PO SCH (06:31)
[2019-12-31 07:23] LABS: African American GFR (CKD) >90 (>60 ml/min/1.73 sqM); Non-African American GFR(CKD) 87 (>60 ml/min/1.73 sqM)
[2019-12-31] MEDS: TAMSULOSIN 0.4 MG CAP.ER.24H PO SCH (09:14)
[2019-12-31] MEDS: FERROUS SULFATE 325 MG TAB PO SCH (09:14)
[2019-12-31] MEDS: FINASTERIDE 5 MG TAB PO SCH (09:14)
[2019-12-31] MEDS: ISOSORBIDE MONONITRATE ER 60 MG TAB.ER.24H PO SCH (09:14)
[2019-12-31] MEDS ORDERED: CLOPIDOGREL 75 MG TAB PO SCH (09:45)
[2019-12-31 09:57] VITALS: BP 117/59; PULSE 62; RESP 17; TEMP 98
--- NOTE | 2019-12-31 10:07 | DS ---
DISCHARGE SUMMARY ADMISSION DATE: 12/30/2019 DISCHARGE DATE: 12/31/2019 BRIEF HISTORY: This is a 79-year-old gentleman who underwent yesterday angioplasty of the left circumflex with inadequate angiographic results for extremely calcified and tortuous left circumflex coronary artery. The patient is going to be discharged home on dual anti-platelet therapy and I will follow up with him next week in the office. DILCIA / DENNIS: [id number] /
== END 2019-12-31 10:54 | disposition home or self-care (01) ==
LOC: CATHCVL 06:23 → 3NCARDOBS 08:40 → 3SCARD 12-30 18:24 → CATHCVL 12-31 10:54
PROVIDERS: ATTEND Internal Medicine Interventional Cardiology
DX: I25.110 Atherosclerotic heart disease of native coronary artery with unstable angina pectoris (principal); I25.710 Atherosclerosis of autologous vein coronary artery bypass graft(s) with unstable angina pectoris; I10 Essential (primary) hypertension; I25.5 Ischemic cardiomyopathy; E78.00 Pure hypercholesterolemia, unspecified; Z95.5 Presence of coronary angioplasty implant and graft; E78.5 Hyperlipidemia, unspecified; I73.9 Peripheral vascular disease, unspecified; Z95.820 Peripheral vascular angioplasty status with implants and grafts; Z72.0 Tobacco use; Z79.82 Long term (current) use of aspirin; Z79.891 Long term (current) use of opiate analgesic; Z79.899 Other long term (current) drug therapy; Z88.0 Allergy status to penicillin; Z88.8 Allergy status to other drugs, medicaments and biological substances
CPT/HCPCS: 93461; 92920; 85347; 82565; C1769 ×10; C1887 ×3; C1725; C1894 ×3; S0138 ×2; J2250; J2001 ×2; J1170 ×2; J0583; Q9967 ×2

== ENCOUNTER → 2020-08-24 | Outpatient (CLI) | payer MEDICARE, BC ==
--- NOTE | 2020-08-24 11:49 | CT ---
EXAMINATION TYPE: CT angio abdomen pelvis DATE OF EXAM: 08/24/2020 COMPARISON: CT abdomen and pelvis June 26, 2019 HISTORY: iliac artery aneurysm CT DLP: 433.5 mGycm, Automated Exposure Control for Dose Reduction was Utilized. CONTRAST: CT scan of the abdomen and pelvis is performed without oral and without and with IV Contrast, patient injected with 100ml mL of Isovue 370. Aneurysm protocol with 3-D reconstructed images created on a [employer] workstation and reviewed. FINDINGS: Vascular: Mild to moderate calcified plaque of the abdominal aorta. There is more severe calcified pl aque of the distal abdominal aorta extending into iliac branch vessels. Postcontrast images demonstra te patency of the celiac artery and SMA without significant stenosis. Patent bilateral single renal a rteries without obvious significant stenosis though presence of dense calcified plaque at origin of l eft renal artery makes evaluation at this level suboptimal. Ectasia to the distal abdominal aorta wit h prominent noncalcified posterior plaque is redemonstrated. There is persistent rim calcified thromb osed aneurysm shortly after the right common iliac arterial bifurcation measuring 4.1 x 3.2 cm image 57 series 3 is stable in size from prior study accounting for technical differences. 2 small crossing patent or enhancing linear vessels superiorly series 6 images 54 through 56 are redemonstrated. No n ew areas of enhancement noted. Patent internal/external iliac artery is redemonstrated. LUNG BASES: Elevated left hemidiaphragm with left basilar scarring. Partial visualization of post-CAB G changes. LIVER/GB: Stable 1.1 cm thin-walled cyst left hepatic lobe image 28 series 6. PANCREAS: No significant abnormality is seen. SPLEEN: No significant abnormality is seen. ADRENALS: No significant abnormality is seen. KIDNEYS: No significant abnormality is seen. BOWEL: Persistent large size hiatal hernia or intrathoracic stomach with abnormal twisting. Evaluatio n bowel is suboptimal as patient has very little intra-abdominal fat. No suspicious new bowel dilatat ion noted. PROSTATE/SEMINAL VESICLES: Markedly enlarged prostate consistent with BPH. LYMPH NODES: No greater than 1cm abdominal or pelvic lymph nodes are appreciated. OSSEOUS STRUCTURES: Underlying scoliosis redemonstrated. Surgical change near thoracolumbar junction again seen. OTHER: Surgical sutures bilateral groin region redemonstrated extending towards pubic symphysis. 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
== END | disposition home or self-care (01) ==
LOC: RADCTMAIN 08:24
PROVIDERS: ATTEND Thoracic Surgery (Cardiothoracic Vascular Surgery)
DX: I72.3 Aneurysm of iliac artery (principal)
CPT/HCPCS: 82565; 84520; 36415; 74174; Q9967

== ENCOUNTER → 2021-08-11 | Outpatient (CLI) | payer MEDICARE, BC ==
[2021-08-11 15:53] LABS: African American GFR (CKD) >90 (>60 ml/min/1.73 sqM); Blood Urea Nitrogen 15 mg/dL (9-20); Non-African American GFR(CKD) 87 (>60 ml/min/1.73 sqM)
--- NOTE | 2021-08-12 09:40 | CT ---
CT angiogram of the abdomen and pelvis HISTORY: Renal artery aneurysm Helical acquisition obtained pre and post ministration of contrast into the abdomen and pelvis, patie nt received 100 cc Isovue-370 IV. Three-dimensional reconstructions were performed on an alternate wo rkstation and reviewed. Automated exposure control for dose reduction, DLP 623.80 mGycentimeters Correlation to prior exam 08/24/2020 The right iliac artery aneurysm which appears thrombosed is again noted and measures approximately 3. 9 x 3.3 cm, perhaps slightly reduced in the interval compared to prior when it measured approximately 3.5 x 4.3 cm. Extensive atheromatous changes are present within the iliac vasculature and aorta. No evident aneurysm of the renal artery. Abdominal aorta shows no aneurysm. Superior mesenteric artery, celiac axis, renal arteries, inferior mesenteric artery are patent. Lung bases show interstitial change similar to prior exam, there is a large hiatal hernia containing stomach. Coronary artery calcifications are extensive, patient is post median sternotomy. Liver and g allbladder, spleen, adrenal glands, kidneys, pancreas are within normal limits. There is no ascites o r bowel obstruction. Prostate is markedly enlarged. Urinary bladder is unremarkable. No pelvic adenop athy. Surgical clips are present in the lower abdomen along the anterior abdominal wall. No retroperi toneal adenopathy. There is marked scoliosis. Postop changes are present to the thoracolumbar spine. Soft tissue present along the femoral canal on the right somewhat more conspicuous, indeterminate. IMPRESSION: Essentially stable iliac artery aneurysm. Indeterminate soft tissue along the right ingui nal canal, postop changes
== END | disposition home or self-care (01) ==
LOC: RADCTMAIN 15:09
PROVIDERS: ATTEND Thoracic Surgery (Cardiothoracic Vascular Surgery)
DX: I72.3 Aneurysm of iliac artery (principal)
CPT/HCPCS: 82565; 84520; 36415; 74174; Q9967

== ENCOUNTER 2021-08-17 16:23 | Emergency (ER) | payer MEDICARE, BC ==
[2021-08-17 16:42] VITALS: TEMP 97.8
[2021-08-17] MEDS ORDERED: SODIUM CHLORIDE 0.9% 1,000 ML IV STA (17:30)
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
[2021-08-17 17:46] VITALS: BP 124/74; PULSE 54; RESP 18
[2021-08-17 17:58] LABS: Basophils # (A) 0.1 k/uL (0-0.2); Basophils % (A) 1 %; Eosinophils # (A) 0.1 k/uL (0-0.7); Eosinophils % (A) 2 %; HCT 37.9 % (39.0-53.0); HGB 12.9 gm/dL (13.0-17.5); Lymphocytes # (A) 1.3 k/uL (1.0-4.8); Lymphocytes % (A) 19 %; MCH 33.8 pg (25.0-35.0); MCHC 34.2 g/dL (31.0-37.0); Mean Platelet Volume 7.4; Monocytes # (A) 0.4 k/uL (0-1.0); Monocytes % (A) 6 %; Neutrophils # (A) 4.7 k/uL (1.3-7.7); Neutrophils % (A) 71 %; Platelet Count 150 k/uL (150-450); RBC 3.83 m/uL (4.30-5.90); RDW 13.9 % (11.5-15.5); WBC 6.6 k/uL (3.8-10.6)
[2021-08-17 17:59] LABS: Lactic Acid, Venous 1.6 mmol/L (0.7-2.0)
[2021-08-17 18:08] LABS: Partial Thromboplastin Time 31.5 sec (22.0-30.0); Prothrombin Time 11.3 sec (9.0-12.0)
[2021-08-17 18:12] LABS: ALT 14 U/L (4-49); African American GFR (CKD) >90 (>60 ml/min/1.73 sqM); Albumin 3.4 g/dL (3.5-5.0); Anion Gap 5 mmol/L; Bilirubin,Unconjugated 0.8 mg/dL (0.0-1.1); Blood Urea Nitrogen 16 mg/dL (9-20); Calcium 8.5 mg/dL (8.4-10.2); Carbon Dioxide 29 mmol/L (22-30); Chloride 99 mmol/L (98-107); Glucose 90 mg/dL (74-99); Non-African American GFR(CKD) 90 (>60 ml/min/1.73 sqM); Sodium 133 mmol/L (137-145); Total Bilirubin 0.8 mg/dL (0.2-1.3); Total Protein 6.4 g/dL (6.3-8.2)
[2021-08-17 18:17] LABS: AST 24 U/L (17-59); Alkaline Phosphatase 45 U/L (38-126); Magnesium 1.8 mg/dL (1.6-2.3); Potassium 4.4 mmol/L (3.5-5.1)
--- NOTE | 2021-08-17 19:13 | CT ---
EXAMINATION TYPE: CT abdomen pelvis w con DATE OF EXAM: 08/17/2021 COMPARISON: 08/11/2021 HISTORY: Abdominal pain and jaundice. CT DLP: 533.2 mGycm, Automated Exposure Control for Dose Reduction was Utilized. CONTRAST: CT scan of the abdomen and pelvis is performed with oral and with IV Contrast, patient inje cted with 100 mL of Isovue 300. FINDINGS: LUNG BASES: No acute findings. LIVER/GB: No significant abnormality is appreciated. No biliary ductal dilation. Gallbladder unrema rkable. Simple hepatic cyst (1.5 cm) noted in segment IVb. PANCREAS: Normal parenchyma and ductal anatomy. SPLEEN: No significant abnormality is seen. ADRENALS: No significant abnormality is seen. KIDNEYS: No significant abnormality is seen. BOWEL: No oral contrast. The stomach is noted to be entirely intrathoracic. No other bowel findings PROSTATE/SEMINAL VESICLES: Prominent prostate hypertrophy noted. LYMPH NODES: No greater than 1cm abdominal or pelvic lymph nodes are appreciated. OSSEOUS STRUCTURES: No significant abnormality is seen. VASCULATURE: No acute findings. Advanced atherosclerotic arterial calcification seen throughout the arterial anatomy, including the coronary arteries. IMPRESSION: No significant acute finding is seen to account for patient's clinical symptoms.
== END 2021-08-17 20:04 | disposition home or self-care (01) ==
LOC: EC 16:23
DX: R53.1 Weakness (principal); I25.10 Atherosclerotic heart disease of native coronary artery without angina pectoris; Z79.82 Long term (current) use of aspirin; I10 Essential (primary) hypertension; I25.2 Old myocardial infarction; H91.90 Unspecified hearing loss, unspecified ear; Z87.891 Personal history of nicotine dependence; Z88.0 Allergy status to penicillin; Z88.5 Allergy status to narcotic agent; Z88.8 Allergy status to other drugs, medicaments and biological substances; Z91.09 Other allergy status, other than to drugs and biological substances
CPT/HCPCS: 36415; 93005; 86900; 86901; 80053; 82140; 82248; 83605; 83735; 85025; 85610; 85730; 86850; 74177; 99285; 96360; Q9967

== ENCOUNTER 2021-10-11 11:31 | Inpatient (IN) | payer MEDICARE, BC ==
[2021-10-11 12:04] LABS: Basophils # (A) 0.1 k/uL (0-0.2); Basophils % (A) 1 %; Eosinophils # (A) 0.2 k/uL (0-0.7); Eosinophils % (A) 2 %; HCT 36.3 % (39.0-53.0); HGB 12.2 gm/dL (13.0-17.5); Lymphocytes # (A) 1.1 k/uL (1.0-4.8); Lymphocytes % (A) 14 %; MCH 33.6 pg (25.0-35.0); MCHC 33.7 g/dL (31.0-37.0); MCV 99.5 fL (80.0-100.0); Mean Platelet Volume 7.5; Monocytes # (A) 0.4 k/uL (0-1.0); Monocytes % (A) 5 %; Neutrophils # (A) 6.1 k/uL (1.3-7.7); Neutrophils % (A) 78 %; Platelet Count 187 k/uL (150-450); RBC 3.65 m/uL (4.30-5.90); RDW 13.8 % (11.5-15.5); WBC 7.9 k/uL (3.8-10.6)
[2021-10-11 12:15] LABS: Partial Thromboplastin Time 31.8 sec (22.0-30.0); Prothrombin Time 10.7 sec (9.0-12.0)
[2021-10-11 12:24] LABS: ALT 16 U/L (4-49); AST 24 U/L (17-59); African American GFR (CKD) >90 (>60 ml/min/1.73 sqM); Albumin 3.4 g/dL (3.5-5.0); Alkaline Phosphatase 59 U/L (38-126); Anion Gap 3 mmol/L; Blood Urea Nitrogen 19 mg/dL (9-20); Calcium 8.4 mg/dL (8.4-10.2); Carbon Dioxide 28 mmol/L (22-30); Chloride 104 mmol/L (98-107); Glucose 103 mg/dL (74-99); Magnesium 1.9 mg/dL (1.6-2.3); Non-African American GFR(CKD) >90 (>60 ml/min/1.73 sqM); Sodium 135 mmol/L (137-145); Total Bilirubin 0.2 mg/dL (0.2-1.3); Total Protein 6.2 g/dL (6.3-8.2)
--- NOTE | 2021-10-11 14:05 | XR ---
EXAMINATION TYPE: XR chest 2V DATE OF EXAM: 10/11/2021 COMPARISON: CT dated 09/26/2018 HISTORY: Chest pain TECHNIQUE: Frontal and lateral views of the chest are obtained. FINDINGS: Suspected COPD changes and scattered pulmonary fibrotic changes. Associated subtle pulmonary infectio n cannot be excluded, please correlate clinically. Nodular density in the right lower lung zone, possibly representing a nipple shadow. No sizable pleur al effusion or definite pneumothorax. No gross cardiomegaly. Apparently large hiatal hernia indenting the posterior aspect of the heart. Sternotomy wire sutures. Dense aortic atherosclerotic calcifications. Lower thoracic fixation using rods and screws. Suspected osteopenia. IMPRESSION: As above.
[2021-10-11] MEDS ORDERED: MORPHINE SULFATE 4 MG/ML SYRINGE IVP STA (14:59)
--- NOTE | 2021-10-11 15:52 | CT ---
EXAMINATION TYPE: CT chest angio for PE DATE OF EXAM: 10/11/2021 COMPARISON: No previous CT chest is available for comparison. HISTORY: Chest pains CT DLP: 203.1 mGy.cm. Automated Exposure Control for Dose Reduction was Utilized. TECHNIQUE AND CONTRAST: CTA scan of the thorax is performed with IV Contrast, patient injected with 100, wasted 24 ml mL of I sovue 370, pulmonary embolism protocol. MIP Images are created on an independent workstation and re viewed. FINDINGS: Questionable tiny embolus is seen in a lingular distal subsegmental pulmonary artery versus artifact. No definite filling defect within the pulmonary trunk, main pulmonary arteries, lobar, segmental or proximal subsegmental branches to suggest pulmonary embolism. Distal subsegmental branches are subopt imally assessed. Coronary and arterial atherosclerotic calcifications. Bilateral peripheral pulmonary reticulations and mild to moderate fibrotic changes. COPD changes. Sca ttered small areas of pulmonary infiltration and groundglass opacities mainly seen in the left lower lobe and lingula. Patent trachea and main bronchi. No pleural or pericardial effusion. Subcentimeter bilateral hilar and mediastinal lymph nodes, nonspecific. Large hiatal hernia containing most of the stomach with mass effect on the heart. Significant fecal l oading the visualized portion of the colon. Thickened adrenals. Bilateral gynecomastia changes. Saxena otomy wire sutures. Thoracolumbar fixation. Osteopenia. T4, T5 and T7 vertebral body collapse, likely chronic. IMPRESSION: No major or central pulmonary embolism. Questionable tiny lingular distal subsegmental pulmonary embo lism versus artifact. Other findings as described above.
[2021-10-11] MEDS ORDERED: HYDROmorphone 1 MG/ML 1 ML SYRINGE IVP STA (16:23)
[2021-10-11] MEDS ORDERED: SODIUM CHLORIDE 0.9% 1,000 ML IV STA (16:24)
[2021-10-11] MEDS ORDERED: MORPHINE SULFATE 4 MG/ML SYRINGE IV PRN (16:50)
[2021-10-11] MEDS ORDERED: NALOXONE 0.4 MG/ML 1 ML VIAL IV PRN (16:50)
[2021-10-11] MEDS ORDERED: AZITHROMYCIN 500 MG in SODIUM CHLORIDE 0.9% 250 ML IVPB STA (16:53)
[2021-10-11] MEDS ORDERED: PNEUMONIA PROTOCOL UTILIZED 1 EACH MISC PO PRN (16:53)
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
[2021-10-11] MEDS ORDERED: ASPIRIN 81 MG PO STA (17:19)
--- NOTE | 2021-10-11 20:08 | HP ---
HISTORY AND PHYSICAL CHIEF COMPLAINT: Chest pain. HISTORY OF PRESENT ILLNESS: This 81-year-old gentleman with a past medical history of multiple medical problems, including CAD, history of GERD, hypertension, hyperlipidemia, being followed by Dr. Hoyt in the outpatient setting, was complaining of chest pain. The pain started in the central part and the left side of the chest this morning and progressively increased, causing some difficulties in breathing also. The initial troponins are negative. A CT chest was also done, which I reviewed personally. It showed possible bilateral pneumonia. COVID test is pending at this time. There is no history of any fever, rigors or chills. No history of headache, loss of consciousness, seizures. PAST MEDICAL HISTORY: History of CAD, GERD, hypertension, hyperlipidemia. MEDICATIONS: Home medications reviewed. They include Nitrostat, Imdur. Doses and the rest of the medications are reviewed. ALLERGIES: Also reviewed. They include AMOXICILLIN. FAMILY HISTORY: No history of heart disease or strokes in the family. SOCIAL HISTORY: Previous history of smoking. REVIEW OF SYSTEMS: Fourteen-point review of systems negative except as mentioned earlier. PHYSICAL EXAMINATION: Pulse is 70, blood pressure 123/60, respirations 18. HEENT: Conjunctivae normal. NECK: No jugular venous distention. CARDIOVASCULAR: S1, S2 muffled. RESPIRATION: Breath sounds diminished at the bases. Scattered rhonchi and crackles. ABDOMEN: Soft, nontender. LEGS: No edema. NERVOUS SYSTEM: No focal deficit. SKIN: No ulcer, rash, bleeding. JOINTS: No active deforming arthropathy. LABS: Reviewed. Sodium ntd. Other labs are reviewed. X-rays reviewed. COVID is negative. ASSESSMENT: 1. Bilateral pneumonia with possible severe pleurisy. 2. Chest pain; rule out acute coronary syndrome. 3. History of coronary artery disease. 4. History of congestive heart failure. 5. History of gastroesophageal reflux disease. 6. Hypertension. 7. Hyperlipidemia. 8. History of coronary artery disease, coronary artery bypass grafting. RECOMMENDATIONS AND DISCUSSION: In this 81-year-old gentleman who presented with multiple complex medical issues, at this time I recommend to continue current medications, continue symptomatic treatment. Otherwise I would recommend bronchodilators as well as empiric antibiotics, cardiology consultation. COVID PCR. Resume the home medications. DVT prophylaxis. Overall prognosis guarded because of multiple complex medical issues. Further recommendations to follow. A copy of this dictation is being forwarded to Dr. Hoyt, who is the primary physician. The patient is vaccinated. Check D-dimer also. MMODL / IJN: [id number] / MTDD
[2021-10-11] MEDS: IPRATROPIUM-ALBUTEROL 3 ML NEB INHALATION SCH (20:35)
[2021-10-11] MEDS: HEPARIN SODIUM,PORCINE/PF 5,000 UNIT/0.5 ML SYRINGE SQ SCH (21:03)
[2021-10-11] MEDS: ZOLPIDEM 5 MG TAB PO SCH (21:03)
[2021-10-11] MEDS: ASPIRIN 81 MG PO SCH (21:03)
[2021-10-11] MEDS: ATORVASTATIN 80 MG TAB PO SCH (21:04)
[2021-10-11] MEDS: RANOLAZINE 500 MG TAB.ER.12H PO SCH (21:04)
[2021-10-11] MEDS: carvediloL 3.125 MG TAB PO SCH (21:14)
[2021-10-11] MEDS: AMITRIPTYLINE HCL 50 MG TAB PO SCH (22:18)
[2021-10-11 23:53] LABS: Appearance,Urine Clear (Clear); Bilirubin,Urine Negative (Negative); Blood,Urine Negative (Negative); Color,Urine Light Yellow; Glucose,Urine (UA) Negative (Negative); Ketones,Urine Negative (Negative); Leukocyte Esterase,Urine Negative (Negative); Nitrite,Urine Negative (Negative); PH, Urine 7.5 (5.0-8.0); Protein,Urine Negative (Negative); Specific Gravity,Urine 1.032 (1.001-1.035); Urobilinogen,Urine <2.0 mg/dL (<2.0)
[2021-10-12] MEDS: IPRATROPIUM-ALBUTEROL 3 ML NEB INHALATION SCH ×3 (07:36→21:02)
--- NOTE | 2021-10-12 08:29 | XR ---
EXAMINATION TYPE: XR chest 2V DATE OF EXAM: 10/12/2021 COMPARISON: X-ray dated 10/11/2021 HISTORY: Pneumonia TECHNIQUE: Frontal and lateral views of the chest are obtained. FINDINGS: Persistent COPD changes. Subtle fibrotic changes are seen in the lung periphery most evident in the l mad[place] bases and more on the left side. Slightly increased density in the left lower lung zone, associated infection cannot be excluded, plea se correlate clinically. No sizable pleural effusion or pneumothorax. Persistent large hiatal hernia. Dense aortic atheroscler otic calcification. Sternotomy wire sutures. Unchanged cardiomediastinal silhouette and bony thoracic cage. IMPRESSION: As above.
[2021-10-12 09:31] LABS: Basophils # (A) 0.05 X 10*3/uL (0.00-0.10); Basophils % (A) 0.9 %; Eosinophils # (A) 0.17 X 10*3/uL (0.04-0.35); Eosinophils % (A) 2.9 %; HGB 11.7 g/dL (13.0-17.0); Immature Grans, Automated 0.2 %; Lymphocytes # (A) 1.72 X 10*3/uL (0.90-5.00); Lymphocytes % (A) 29.4 %; MCH 32.1 pg (27.0-32.0); MCHC 32.5 g/dL (32.0-37.0); MCV 98.9 fL (80.0-97.0); Mean Platelet Volume 10.1 fL (9.5-12.2); Monocytes # (A) 0.51 X 10*3/uL (0.20-1.00); Monocytes % (A) 8.7 %; NRBC Per 100 WBC 0 /100 WBCS (0.0-0.0); Neutrophils # (A) 3.39 X 10*3/uL (1.80-7.70); Neutrophils % (A) 57.9 %; Platelet Count 161 X 10*3/uL (140-440); RBC 3.64 X 10*6/uL (4.40-5.60); RDW 14.1 % (11.5-14.5); WBC 5.85 X 10*3/uL (4.50-10.00)
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
[2021-10-12 10:01] LABS: African American GFR (CKD) 97.8 (60.0-200.0); Anion Gap 7.2 mmol/L (10.00-18.00); BUN/Creat Ratio 15.38 Ratio (12.00-20.00); Blood Urea Nitrogen 12.3 mg/dL (9.0-27.0); Calcium 8.4 mg/dL (8.7-10.3); Carbon Dioxide 27.8 mmol/L (20.0-27.5); Non-African American GFR(CKD) 84.4 (60.0-200.0); Potassium 3.8 mmol/L (3.5-5.5)
[2021-10-12] MEDS: AZITHROMYCIN 500 MG TAB PO SCH (10:26)
[2021-10-12] MEDS: RANOLAZINE 500 MG TAB.ER.12H PO SCH ×2 (10:26→20:21)
[2021-10-12] MEDS: PANTOPRAZOLE 40 MG TABLET PO SCH (10:27)
[2021-10-12] MEDS: ISOSORBIDE MONONITRATE ER 60 MG TAB.ER.24H PO SCH (10:27)
[2021-10-12] MEDS: FUROSEMIDE 20 MG TAB PO SCH (10:30)
[2021-10-12] MEDS: HEPARIN SODIUM,PORCINE/PF 5,000 UNIT/0.5 ML SYRINGE SQ SCH ×2 (10:31→22:34)
[2021-10-12] MEDS: carvediloL 3.125 MG TAB PO SCH ×3 (10:31→20:21)
[2021-10-12] MEDS: CLOPIDOGREL 75 MG TAB PO SCH (14:20)
--- NOTE | 2021-10-12 19:26 | PN ---
PROGRESS NOTE DATE OF SERVICE: 10/12/2021 This 81-year-old gentleman admitted with chest pain had bilateral pneumonia. No fever. No cough. Mild chest pain reported. PHYSICAL EXAMINATION: Pulse 73, blood pressure 105/60, respiration 19. HEENT: Conjunctivae normal. NECK: No jugular venous distention. CARDIOVASCULAR: S1, S2 muffled. RESPIRATION: Breath sounds diminished at the bases. A few scattered rhonchi. ABDOMEN: Soft. NERVOUS SYSTEM: No focal deficit. LABS: Reviewed. ASSESSMENT: 1. Acute bilateral pneumonia with possible severe pleurisy and severe chest pain. 2. Chest pain . Rule out acute coronary syndrome. 3. History of coronary artery disease. 4. History of congestive heart failure. 5. History of gastroesophageal reflux disease. 6. Multiple medical issues. RECOMMENDATIONS AND DISCUSSION: I recommend to continue current medications, continue with the monitoring, symptomatic treatment. Continue with the bronchodilators. Continue with the antibiotics and the rest of the medications. Cardiology and pulmonology consultations. Guarded prognosis. Further recommendations to follow. MMODL / IJN: [id number] / MTDD
[2021-10-12] MEDS: ASPIRIN 81 MG PO SCH (20:20)
[2021-10-12] MEDS: ATORVASTATIN 80 MG TAB PO SCH (20:20)
[2021-10-12] MEDS: AMITRIPTYLINE HCL 50 MG TAB PO SCH (22:34)
[2021-10-12] MEDS: ZOLPIDEM 5 MG TAB PO SCH (22:49)
[2021-10-13 08:06] VITALS: RESP 17
[2021-10-13] MEDS: AZITHROMYCIN 500 MG TAB PO SCH (08:26)
[2021-10-13] MEDS: FUROSEMIDE 20 MG TAB PO SCH (08:26)
[2021-10-13] MEDS: RANOLAZINE 500 MG TAB.ER.12H PO SCH (08:26)
[2021-10-13] MEDS: carvediloL 3.125 MG TAB PO SCH (08:27)
[2021-10-13] MEDS: ISOSORBIDE MONONITRATE ER 60 MG TAB.ER.24H PO SCH (08:27)
[2021-10-13] MEDS: HEPARIN SODIUM,PORCINE/PF 5,000 UNIT/0.5 ML SYRINGE SQ SCH (08:27)
[2021-10-13] MEDS: PANTOPRAZOLE 40 MG TABLET PO SCH (08:27)
[2021-10-13] MEDS: IPRATROPIUM-ALBUTEROL 3 ML NEB INHALATION SCH ×3 (09:39→16:52)
--- NOTE | 2021-10-13 09:52 | CA ---
Transthoracic Echo Report Name: Dread De La Rosa Age: 81 Gender: M : 1940 Exam Date: 10/12/2021 08:32 Exam Location: [facility] Ht (in): 60 Wt (lb): 100 Ordering Physician: Jaime Barrow MD Attending/Referring Phys: Strategic Development Manager Yaquelin Jackson RDCS Procedure CPT: Indications: atypical chest pain Cardiac Hx: Technical Quality: Good Contrast 1: Total Dose (mL): Contrast 2: Total Dose (mL): MEASUREMENTS (Male / Female) Normal Values 2D ECHO LV Diastolic Diameter PLAX 3.5 cm 4.2 - 5.9 / 3.9 - 5.3 cm LV Systolic Diameter PLAX 2.6 cm IVS Diastolic Thickness 0.8 cm 0.6 - 1.0 / 0.6 - 0.9 cm LVPW Diastolic Thickness 1.0 cm 0.6 - 1.0 / 0.6 - 0.9 cm LV Relative Wall Thickness 0.5 RV Internal Dim ED PLAX 3.0 cm LVOT Diameter 2.1 cm LA Systolic Diameter LX 2.1 cm 3.0 - 4.0 / 2.7 - 3.8 cm LA Volume 61.2 cm??? 18 - 58 / 22 - 52 cm??? M-MODE Aortic Root Diameter MM 3.2 cm MV E Point Septal Separation 0.9 cm AV Cusp Separation MM 1.5 cm DOPPLER AV Peak Velocity 207.0 cm/s AV Peak Gradient 17.1 mmHg AV Mean Velocity 147.2 cm/s AV Mean Gradient 9.6 mmHg AV Velocity Time Integral 46.2 cm AI Peak Velocity 361.0 cm/s AI Peak Gradient 52.1 mmHg AI Pressure Half Time 503.4 ms LVOT Peak Velocity 93.1 cm/s LVOT Peak Gradient 3.5 mmHg AV Area Cont Eq pk 1.6 cm??? MV Area PHT 2.6 cm??? Mitral E Point Velocity 89.0 cm/s Mitral A Point Velocity 90.1 cm/s Mitral E to A Ratio 1.0 MV Deceleration Time 289.9 ms MV E' Velocity 6.6 cm/s Mitral E to MV E' Ratio 13.5 TR Peak Velocity 280.9 cm/s TR Peak Gradient 31.6 mmHg Right Ventricular Systolic Press 36.3 mmHg FINDINGS Left Ventricle Left ventricular ejection fraction is estimated at 50-55 %. Left ventricular cavity size normal. Left ventricular wall thickness normal. Right Ventricle Normal right ventricular size and function. Mild pulmonary hypertension. Right Atrium Normal right atrial size. Left Atrium Mildly increased left atrial volume. Mildly increased left atrial area. No evidence for an atrial septal defect. Mitral Valve Mitral annular calcification. Aortic Valve Trileaflet aortic valve. [id number] aortic regurgitation. Mild aortic stenosis with a peak gradient of 17 mmHg and a mean gradient of 10 mmHg. Moderate aortic valve sclerosis. Tricuspid Valve Mild tricuspid regurgitation. Pulmonic Valve Trace pulmonic regurgitation. Pericardium Normal pericardium. No pericardial effusion. Aorta Normal size aortic root and proximal ascending aorta. CONCLUSIONS Asymmetric septal hypertrophy Preserved LV systolic function Left atrial enlargement Mild aortic stenosis Previewed by: Dr. Collin Martinez MD (Electronically Signed) Final Date: 13 October 2021 09:51
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
[2021-10-13 15:52] VITALS: BP 101/57; TEMP 97.9
[2021-10-13] MEDS: CLOPIDOGREL 75 MG TAB PO SCH (16:14)
[2021-10-13 17:04] VITALS: PULSE 60
== END 2021-10-13 17:17 | disposition home or self-care (01) | DRG 194 ==
LOC: EC 11:31 → 4SSUR 16:50
PROVIDERS: ADMIT Hospitalist; ATTEND Hospitalist
DX: J18.9 Pneumonia, unspecified organism (principal); J44.0 Chronic obstructive pulmonary disease with (acute) lower respiratory infection; I11.0 Hypertensive heart disease with heart failure; I50.9 Heart failure, unspecified; E78.5 Hyperlipidemia, unspecified; Z20.822 Contact with and (suspected) exposure to COVID-19; I25.10 Atherosclerotic heart disease of native coronary artery without angina pectoris; M19.90 Unspecified osteoarthritis, unspecified site; K21.9 Gastro-esophageal reflux disease without esophagitis; K44.9 Diaphragmatic hernia without obstruction or gangrene; R07.89 Other chest pain; Z95.1 Presence of aortocoronary bypass graft; N42.9 Disorder of prostate, unspecified; I25.5 Ischemic cardiomyopathy; I08.0 Rheumatic disorders of both mitral and aortic valves; D64.9 Anemia, unspecified; G89.29 Other chronic pain; H91.90 Unspecified hearing loss, unspecified ear; Z87.891 Personal history of nicotine dependence; I25.2 Old myocardial infarction; Z79.02 Long term (current) use of antithrombotics/antiplatelets; Z79.82 Long term (current) use of aspirin; Z79.891 Long term (current) use of opiate analgesic; Z79.899 Other long term (current) drug therapy; Z88.1 Allergy status to other antibiotic agents; Z88.5 Allergy status to narcotic agent; Z88.8 Allergy status to other drugs, medicaments and biological substances; Z98.42 Cataract extraction status, left eye; Z98.41 Cataract extraction status, right eye
CPT/HCPCS: 36415; 71046; 71275; 80048; 80053; 81003; 83735; 84484; 85025; 85379; 85610; 85652; 85730; 86140; 87040; 87502; 87635; 93005; 93306; 94640; 96361; 96365; 96367; 96375; 99285

== ENCOUNTER 2021-10-17 14:42 | Emergency (ER) | payer MEDICARE, BC ==
[2021-10-17 14:59] VITALS: BP 97/69; PULSE 97; RESP 16; TEMP 98.2
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
--- NOTE | 2021-10-17 16:19 | CT ---
EXAMINATION TYPE: CT brain sebas elizalde DATE OF EXAM: 10/17/2021 COMPARISON: None available HISTORY: Fall CT DLP: 1263 mGycm Automated exposure control for dose reduction was used. TECHNIQUE: CT scan of the head and cervical spine are performed without contrast. FINDINGS: Suspected mild cerebral white matter chronic microvascular ischemic changes. Arterial ath erosclerotic calcifications. There is no acute intracranial hemorrhage, mass effect, or midline shift identified. The ventricles and sulci are within normal limits in size. The globes are intact and t he visualized sinuses are clear. Right parieto-occipital scalp swelling/hematoma with possible lacera tion and overlying skin navarro. Osteopenia. Stable T4 vertebral body collapse. Anterolisthesis of C7 over T1, likely degenerative. Cervical spine is visualized in its entirety from C1 through upper thoracic levels and demonstrates satisfactory al ignment otherwise without evidence of acute fracture or dislocation. Prevertebral soft tissue appear s within normal limits. The C1-C2 articulation is unremarkable. Degenerative changes of the cervical spine most evident at C4-5, C5-6 and C6-7 levels. Bilateral C5-6 neural foraminal stenosis. No significant bony central spinal canal stenosis. Scattered arterial ath erosclerotic calcifications. COPD changes. Questionable infiltration/fibrotic changes seen at the per iphery of the lungs. IMPRESSION: 1. There is no acute fracture or dislocation evident in the cervical spine. 2. No acute intracranial hemorrhage, mass effect, or midline shift is seen. 3. Other findings as described above.
--- NOTE | 2021-10-17 16:29 | XR ---
EXAMINATION TYPE: XR chest 1V portable DATE OF EXAM: 10/17/2021 COMPARISON: X-ray dated 10/12/2021 HISTORY: Trauma TECHNIQUE: Single frontal view of the chest is obtained. FINDINGS: Question minimal infiltration/groundglass opacity in the left lower lung zone, please correlate clini noe for acute infection. Grossly unremarkable lungs otherwise. No sizable pleural effusion. No defi nite pneumothorax. Large hiatal hernia containing sizable portion of the stomach. No gross cardiomegaly. Aortic atherosc lerotic calcifications. Sternotomy wire sutures. Thoracolumbar spine fixation. Suspected fecal loadin g of the visualized portion of the colon. IMPRESSION: As above.
--- NOTE | 2021-10-17 16:31 | XR ---
EXAMINATION TYPE: XR pelvis AP view DATE OF EXAM: 10/17/2021 COMPARISON: CT dated 08/17/2021 INDICATION: Fall off pain TECHNIQUE: Single AP view of the pelvic bones. FINDINGS: Osteopenia. No definite acute pelvic bone or proximal femoral fracture identified. Degenerative miranda es of the lower lumbar spine and sacroiliac joints. Multiple surgical clips are seen in the pelvis. A rterial atherosclerotic calcifications. IMPRESSION: No obvious acute fracture or dislocation identified.
[2021-10-17 16:42] LABS: Basophils # (A) 0.1 k/uL (0-0.2); Basophils % (A) 1 %; Eosinophils # (A) 0.3 k/uL (0-0.7); Eosinophils % (A) 3 %; HCT 33.6 % (39.0-53.0); HGB 11.2 gm/dL (13.0-17.5); Lymphocytes # (A) 1.2 k/uL (1.0-4.8); Lymphocytes % (A) 11 %; MCH 34.1 pg (25.0-35.0); MCHC 33.4 g/dL (31.0-37.0); MCV 102.1 fL (80.0-100.0); Macrocytosis Slight; Mean Platelet Volume 7.3; Monocytes # (A) 0.7 k/uL (0-1.0); Monocytes % (A) 7 %; Neutrophils # (A) 8.6 k/uL (1.3-7.7); Neutrophils % (A) 78 %; Platelet Count 173 k/uL (150-450); RBC 3.29 m/uL (4.30-5.90); RDW 13.9 % (11.5-15.5)
[2021-10-17 16:53] LABS: ALT 16 U/L (4-49); AST 23 U/L (17-59); African American GFR (CKD) >90 (>60 ml/min/1.73 sqM); Albumin 3.7 g/dL (3.5-5.0); Alcohol <10 mg/dL; Alkaline Phosphatase 68 U/L (38-126); Anion Gap 4 mmol/L; Blood Urea Nitrogen 26 mg/dL (9-20); Calcium 8.4 mg/dL (8.4-10.2); Carbon Dioxide 29 mmol/L (22-30); Chloride 96 mmol/L (98-107); Glucose 110 mg/dL (74-99); Non-African American GFR(CKD) 82 (>60 ml/min/1.73 sqM); Potassium 4.7 mmol/L (3.5-5.1); Sodium 129 mmol/L (137-145); Total Bilirubin 0.6 mg/dL (0.2-1.3); Total Protein 6.4 g/dL (6.3-8.2)
[2021-10-17] MEDS ORDERED: SODIUM CHLORIDE 0.9% 500 ML 500 ML IV STA (17:06)
[2021-10-17 17:09] LABS: INR 1.1 (<1.2); Partial Thromboplastin Time 29.6 sec (22.0-30.0); Prothrombin Time 11.4 sec (9.0-12.0)
== END 2021-10-17 18:25 | disposition home or self-care (01) ==
LOC: EC 14:42
DX: S01.01XA Laceration without foreign body of scalp, initial encounter (principal); I11.0 Hypertensive heart disease with heart failure; I50.9 Heart failure, unspecified; I25.10 Atherosclerotic heart disease of native coronary artery without angina pectoris; K21.9 Gastro-esophageal reflux disease without esophagitis; E78.5 Hyperlipidemia, unspecified; I25.2 Old myocardial infarction; M19.90 Unspecified osteoarthritis, unspecified site; Z87.891 Personal history of nicotine dependence; Z95.1 Presence of aortocoronary bypass graft; Z79.82 Long term (current) use of aspirin; Z79.02 Long term (current) use of antithrombotics/antiplatelets; Z79.899 Other long term (current) drug therapy; W10.9XXA Fall (on) (from) unspecified stairs and steps, initial encounter; Y93.K1 Activity, walking an animal
CPT/HCPCS: 36415; 93005; 86900; 86901; 80053; 85025; 85610; 85730; 86850; 72170; 71045; 72125; 70450; 99291; 12002; 96360; G0480; 80320